=== PATIENT | female | born 1980 | race Caucasian/White ===

== ENCOUNTER 2018-09-02 13:09 | Outpatient (CLI) | payer BC ==
--- NOTE | 2018-09-02 16:27 | MMO ---
BILATERAL SCREENING MAMMOGRAM: Date: 09/02/18 COMPARISON: 01/24/11. HISTORY: Annual screening exam. This patient's mammogram was interpreted with the assistance of computer-aided detection. FINDINGS: The breasts are heterogeneously dense. Bilateral breast implants appear normal. Benign calcifications in both breasts. IMPRESSION: BIRADS 2: Benign Finding(s) POS: [facility]
== END 2018-09-02 13:10 | disposition home or self-care (01) ==
LOC: SCSMAMMO 13:09
PROVIDERS: ATTEND Family Medicine
DX: Z12.31 Encounter for screening mammogram for malignant neoplasm of breast (principal)
CPT/HCPCS: 77067

== ENCOUNTER 2018-09-25 07:06 | Outpatient (CLI) | payer OTHER ==
--- NOTE | 2018-09-25 09:15 | ULT ---
PELVIC ULTRASOUND: Date: 09/25/18 HISTORY: Pelvic pain. Patient states history of prior hysterectomy. FINDINGS: Multiple transabdominal and endovaginal sonographic images of the pelvis are obtained. The uterus is not visualized consistent with patient's reported history of prior hysterectomy. The right ovary is visualized and demonstrates a normal sonographic appearance measuring 2.7 cm x 1.6 cm x 1.7 cm. The left ovary is not visualized. However, there is a large amount of bowel gas within the left adnex al region, which results in shadowing and may obscure patient's left ovary. No obvious mass is seen i n the left adnexal region. No free fluid is seen in the pelvis. Doppler evaluation of the right ovary with spectral analysis and color flow evaluation does demonstra te arterial flow in the right ovary. IMPRESSION: 1. Normal appearing right ovary. 2. Nonvisualization of the left ovary. 3. Nonvisualization of the uterus related to patient's history of hysterectomy. POS: [facility]
--- NOTE | 2018-09-25 09:31 | ULT ---
ABDOMEN ULTRASOUND: HISTORY: Pelvic pain. Abdominal pain. FINDINGS: The liver demonstrates a homogeneous echotexture without focal mass or intrahepatic ductal dilatation . The spleen is normal, measuring 10.8 cm. No gallstones, gallbladder wall thickening, or perichole cystic fluid is seen. There is sludge in the gallbladder. The common duct measures 5 mm in diameter . There is sludge in the gallbladder, which is distended, measuring 11 cm. The pancreas, aorta, and IVC are not well visualized due to overlying bowel gas. The kidneys are normal. No free fluid is s een. IMPRESSION: Distended gallbladder with sludge. POS: [facility]
== END 2018-09-25 07:07 | disposition home or self-care (01) ==
LOC: SCSULT 07:06
PROVIDERS: ATTEND Family Medicine
DX: R10.2 Pelvic and perineal pain (principal); K82.8 Other specified diseases of gallbladder; Z87.42 Personal history of other diseases of the female genital tract; Z90.710 Acquired absence of both cervix and uterus
CPT/HCPCS: 76700; 76856

== ENCOUNTER 2018-10-09 14:27 | Inpatient (IN) | payer BC ==
[2018-10-09] MEDS ORDERED: Metoclopramide HCl 10 MG/2 ML VIAL IVP SCH (15:00)
[2018-10-09] MEDS ORDERED: Lactated Ringer's 1,000 ML IV SCH (15:00)
[2018-10-09 15:20] LABS: #Basophils 0.1 thou/uL (0.0-0.2); #Lymphocytes 1.6 thou/uL (1.20-3.40); #Monocytes 1.1 thou/uL (0.11-0.59); #Neutrophils 13.6 thou/uL (1.40-6.50); %Basophils 0.4 % (0.0-1.0); %Eosinophils 0.2 % (0.0-10.0); %Lymphocytes 9.7 % (21.0-51.0); %Monocytes 6.7 % (0.0-10.0); %Neutrophils 83.1 % (42.0-75.0); Hemoglobin 14.6 g/dL (12.0-16.0); Mean Corpuscular Hemoglobin 31.4 pg (27.0-31.0); Mean Corpuscular Volume 92.4 fL (78.0-98.0); Mean Platelet Volume 7.3 fL (7.4-10.4); Platelet Count 404 thou/uL (130-400); RBC Distribution Width 10.6 % (11.5-14.5); Red Blood Cell (RBC) Count 4.64 mill/uL (4.20-5.40); White Blood Cell (WBC) Count 16.4 thou/uL (4.8-10.8)
--- NOTE | 2018-10-09 15:24 | HP ---
HISTORY OF PRESENT ILLNESS: Clementina Meza is a 38-year-old female, followed by Dr. Lakesha Polanco, who has a negative family history of colon problems, although her mother did have severe diverticulitis requiring surgery. The patient on 09/22/2018 experienced acute onset of left lower quadrant pain. She never really experienced a fever. She saw Dr. Lakesha Polanco on September 24, and on September 25, she had an ultrasound of her pelvis revealing absence of any remarkable findings. She had an ultrasound of her gallbladder revealing gallbladder sludge. She had persistent pain, and on 09/28/2018 at [facility], she had a CAT scan of abdomen and pelvis revealing an abscess in left lower quadrant, pelvis 5.7 x 3.9 cm, and 7.7 cm craniocaudal dimension consistent with what suspect diverticular abscess near the junction of the descending sigmoid colon. She had scattered colonic diverticula in the area. There was an extensive fat stranding, remainder of the bowel was normal. Appendix was not visualized. The patient was then scheduled and underwent on 09/30/2018 CT-guided drainage of the abscess. She continued without alteration of her diet, although she was not very hungry, did not consume much solid food because of her anorexia, and she was treated with Augmentin twice a day. She irrigated her drain twice a day. She presented to Dr. Polanco's office today and was not feeling right. She just did not feel good. On 10/07/2018, the patient did see Dr. Marvin at [facility] and removed her drain. The patient states that she has pain at the end of her urination and she is exquisitely tender in the left lower quadrant, although without fever. She just does not feel well and has suffered anorexia. ALLERGIES: NONE. SOCIAL HISTORY: Tobacco, none. Alcohol, none. MEDICATIONS: 1. Levothyroxine. 2. Testosterone. 3. Progesterone. 4. Augmentin. PAST SURGICAL HISTORY: Breast augmentation; robotic hysterectomy without oophorectomy; breast biopsy that I performed in 2009, left. PAST MEDICAL HISTORY: Noncontributory except for recurrent ovarian cyst that she has monthly pain, although has not had this for 6 months. REVIEW OF SYSTEMS: Ten-point, noncontributory. FAMILY HISTORY: Noncontributory. PHYSICAL EXAMINATION: VITAL SIGNS: Weight 134 pounds. Height 65 inches. Blood pressure 124/82, pulse 117, temperature 99.5 degrees. HEAD, EYES, EARS, NOSE, AND THROAT: Unremarkable. Sclerae are nonicteric. LUNGS: Clear to auscultation. CARDIAC: Regular rate and rhythm without murmur or gallop. ABDOMEN: Soft, flat, nondistended, but exquisite tenderness in the left lower quadrant with guarding. EXTREMITIES: Unremarkable. No ankle edema. NEUROLOGIC: Intact. SKIN: Normal. LABORATORY DATA: Laboratories from [facility] on 09/05/2018; white count 5, hemoglobin 14, platelet count 194,000. Sodium 140, potassium 3.8, BUN 11, creatinine 0.78. Liver function tests normal. Cholesterol panel normal. Thyroid function tests normal. Cultures from CT-guided drainage reveal multiple organisms, E coli, Klebsiella, Streptococcus, Pseudomonas. ASSESSMENT AND PLAN: Diverticulitis, refractory to medical management. She underwent CT-guided drainage and had her drain removed on 10/07/2018. She continues on oral antibiotics, but feels worse. Her tenderness is significant. Radiological evidence suggested diverticular abscess at her young age. She has never had a colonoscopy. Family history is negative except for mother having severe diverticulitis, requiring colon resection. [facility] Surgeon, who recommended she have colon resection in 6 to 8 weeks. I have told her that we would try to avoid this depending on her clinical course. I did recommend that she have a colonoscopy in 6 to 8 weeks if we successfully resolve this episode due to her refractory diverticulitis to medical management, would recommend admission, intravenous antibiotics, bowel rest, repeating her CAT scan, and make further recommendations based on that. Job ID: [id number]
[2018-10-09 15:48] LABS: ALT (SGPT) 19 U/L (8-55); AST (SGOT) 15 U/L (5-34); Albumin 4.2 g/dL (3.5-5.0); Alkaline Phosphatase 92 U/L (40-150); Anion Gap 14 mmol/L (10-20); BUN (Urea Nitrogen) 8 mg/dL (7.0-18.7); Bilirubin, Total 0.7 mg/dL (0.2-1.2); Calc. Creatinine Clearance 0 mL/min (70-130); Carbon Dioxide 23 mmol/L (22-29); Chloride 103 mmol/L (98-107); Estimated GFR-MDRD 77; Globulin 3.9 g/dL (2.4-3.5); Glucose 93 mg/dL (70-105); Potassium 3.7 mmol/L (3.5-5.1); Protein, Total 8.1 g/dL (6.0-8.3); Sodium 136 mmol/L (136-145)
[2018-10-09] MEDS: Ketorolac Tromethamine 30 MG/ML VIAL IVP SCH ×2 (16:07→20:47)
[2018-10-09] MEDS: Acetaminophen 1,000 MG in Premix Bag 1 BAG IVPB SCH ×2 (16:12→20:47)
[2018-10-09] MEDS: Piperacillin/Tazobactam 4.5 GM in Sodium Chloride 0.9% 100 ML IVPB SCH ×2 (16:15→20:46)
[2018-10-09] MEDS: Lactated Ringer's 1,000 ML IV SCH ×2 (16:24→20:49)
[2018-10-09] MEDS ORDERED: Iopamidol 370 76% 50 ML VIAL FS ONE (16:32)
[2018-10-09] MEDS ORDERED: Iopamidol 370 76% 100 ML VIAL ONE (16:32)
[2018-10-09 16:55] VITALS: BMI 22.3
[2018-10-09 17:21] LABS: Bilirubin Negative (Negative); Blood, Urine Negative (Negative); Clarity CLEAR (Clear); Glucose, Urine (Dipstick) Negative (Negative); Leukocyte Negative (Negative); Nitrite Negative (Negative); Protein, Urine (Dipstick) Negative (Neg-Trace); Urobilinogen 0.2 mg/dL (0.2-1.0); pH, Urine 6.5 (5.0-9.0)
[2018-10-09 17:27] LABS: Specific Gravity, Urine 1.003 (1.002-1.036)
[2018-10-09 17:33] LABS: Bacteria/HPF None Seen HPF (None Seen); Hyaline Casts/LPF NONE SEEN LPF (0-3 Hyaline); RBC/HPF None Seen HPF (0-3); Squamous Epithelial 0-3 HPF (0-3); WBC/HPF 0-3 HPF (0-3)
--- NOTE | 2018-10-09 19:37 | CT ---
CT OF THE ABDOMEN AND PELVIS 10/09/18 COMPARISON: 09/28/18 HISTORY: Diverticulitis and history of abscess. TECHNIQUE: Axial CT imaging is obtained at 5 mm intervals from lung bases through pubic symphysis with IV and or al contrast. Coronal reformatted imaging obtained. FINDINGS: The imaged lung bases demonstrate no acute findings. No free intraperitoneal air. Incompletely imaged bilateral breast implants are present. The liver, gallbladder, spleen, pancreas, adrenal glands, and kidneys demonstrate no acute findings. There is wall thickening of the urinary bladder superiorly and to the left of midline. There is extensive wall thickening of the colon from the level of the junction of the descending colo n and sigmoid colon to the level of the rectum. There are a few scattered diverticula. Findings are c onsistent with colitis/extensive diverticulitis. There is a fluid collection in the left lower quadrant anterior to the inflamed sigmoid colon which c ontains gas along its anterior portion measuring 4.1 x 5.5 x 3.3 cm, consistent with residual right l ower quadrant abscess. No additional abscess is identified on this exam. There is no evidence for bowel obstruction. The vascular structures appear patent. Mildly enlarged left para-aortic node on image 34 measures 1 cm. Probable enlarged hypodense node meena ng external iliac chain on the right on image 6 3 measures 1.1 cm. There is significant stranding/inf lammatory change involving the lower pelvic mesenteric fat. Review of the osseous structures demonstrate no acute findings. On axial image 65 and coronal image 58, there is a vague hypodensity abutting the superior aspect of the urinary bladder posteriorly on the left measuring 1.8 cm which could represent an area of phlegmo nous change or could be adnexal/ovarian in nature. IMPRESSION: 1. Extensive colonic wall thickening from distal descending colon/sigmoid colon through rectum c onsistent with extensive colitis, likely on the basis of diverticulitis. Residual/recurrent left lowe r quadrant abscess. Extensive inflammatory change noted in the pelvis. 2. Wall thickening of the urinary bladder suggests secondary inflammatory change. Hypodensity al willie the superior margin of the urinary bladder as detailed above. POS: [facility]
[2018-10-09] MEDS ORDERED: Melatonin 3 MG TAB PO PRN (19:42)
[2018-10-09] MEDS ORDERED: Vancomycin HCl 1.5 GM in Sodium Chloride 0.9% 250 ML 300 ML IVPB ONE (19:45)
[2018-10-09] MEDS: Enoxaparin Sodium 40 MG/0.4 ML SYRINGE SC SCH (20:48)
[2018-10-09] MEDS: Temazepam 15 MG CAP PO PRN (20:53)
[2018-10-10] MEDS: Piperacillin/Tazobactam 4.5 GM in Sodium Chloride 0.9% 100 ML IVPB SCH ×4 (02:57→21:03)
[2018-10-10] MEDS: Ketorolac Tromethamine 30 MG/ML VIAL IVP SCH ×3 (02:57→15:02)
[2018-10-10] MEDS: Acetaminophen 1,000 MG in Premix Bag 1 BAG IVPB SCH ×3 (02:57→15:02)
[2018-10-10] MEDS: Lactated Ringer's 1,000 ML IV SCH ×2 (06:51→16:27)
[2018-10-10] MEDS: Liothyronine Sodium 5 MCG TAB PO SCH (07:48)
[2018-10-10 08:36] LABS: INR-International Normal Ratio 1.3; PTT 31.3 SEC (22.9-36.1); Prothrombin Time 16.6 SEC (12.0-14.7)
[2018-10-10] MEDS ORDERED: Midazolam HCl 2 mg/2 ml Vial ONE (10:04)
[2018-10-10] MEDS ORDERED: Fentanyl 100 MCG/2 ML VIAL ONE (10:05)
[2018-10-10] MEDS ORDERED: Sodium Bicarbonate 2.5 MEQ/5 ML VIAL ONE (10:05)
[2018-10-10] MEDS: Fentanyl 100 MCG/2 ML VIAL SLOW IVP PRN ×4 (12:52→20:19)
--- NOTE | 2018-10-10 14:31 | CT ---
CT GUIDED PERCUTANEOUS LEFT PELVIS ABSCESS DRAINAGE: DATE: 10/10/2018. HISTORY: Diverticular abscess. The patient has a history of diverticular abscess in the left anterolateral pe lvis, and a drainage catheter was placed at outside institution and was recently removed. Followup C T scan examination at this institution demonstrates a fluid and air collection within the left pelvis suggestive of an abscess. Drainage was requested. TECHNIQUE: After informed consent was obtained, the patient was placed on the CT scan table in the supine positi on. Conscious sedation was performed with the intravenous administration of Fentanyl and Versed. Th e patient is currently on antibiotics for the diverticulitis and diverticular abscess, and as a resul t, no additional antibiotics were given during the exam. Limited noncontrasted CT scan was obtained through the pelvis. An area overlying the left anterolate ral pelvis just anterior to the level of the iliac bone is marked, and the area was meticulously prep ped and draped in the usual sterile fashion. The skin and subcutaneous tissues were infiltrated with buffered 1% Lidocaine for local anesthesia. A 21-gauge micropuncture needle was advanced into the collection and position was confirmed with axia l CT images. A 0.018-inch guidewire was placed and the needle was exchanged for a 5 Guamanian introduce r sheath. A small skin incision was made at the puncture site. Position was again confirmed with [address]. The introducer sheath was then exchanged over a 0.035 inch Amplatz guidewire for an 8 Guamanian tissue d ilator followed by placement of an 8 Guamanian Cashiers-loop all-purpose drainage catheter. Final images de monstrate catheter within the collection. Approximately 27 mL of purulent fluid was aspirated from t he fluid and gas collection in the left anterior pelvis. The catheter was sutured in place utilizing 2-0 Ethilon suture material, and a dry, sterile dressing was placed. The catheter was placed to gravity drainage. The patient tolerated the procedure well and without immediate complication. FINDINGS: Left anterolateral pelvis abscess collection. There is gas seen superior to this region and in the r egion of the left rectus abdominus muscle related to site of prior drainage catheter which is no long er visualized. An 8 Guamanian all-purpose Cashiers-loop drainage catheter was placed within the abscess collection and puru lent material was aspirated. IMPRESSION: Technically successful CT-guided percutaneous abscess drainage left anterolateral pelvis. POS: [facility]
[2018-10-10] MEDS: Ondansetron ODT 4 MG TAB PO PRN (15:01)
[2018-10-10] MEDS ORDERED: traMADol HCl 50 MG TAB PO PRN (20:02)
[2018-10-10] MEDS ORDERED: Ibuprofen 600 MG TAB PO PRN (20:02)
[2018-10-10] MEDS ORDERED: Acetaminophen 500 MG TAB PO PRN (20:02)
[2018-10-10] MEDS ORDERED: HYDROcodone/Acetaminophen 5/325 mg Tablet PO PRN ×2 (20:04)
[2018-10-10] MEDS: Ketorolac Tromethamine 30 MG/ML VIAL IVP PRN (20:21)
[2018-10-10] MEDS: Enoxaparin Sodium 40 MG/0.4 ML SYRINGE SC SCH (20:21)
[2018-10-10] MEDS: Ondansetron PF 4 MG/2 ML Vial IVP PRN (20:46)
--- NOTE | 2018-10-10 21:55 | PRG ---
DATE OF SERVICE: 10/10/2018 SUBJECTIVE: Ms. Meza is doing well today. She has remained afebrile; 98.1 degrees, 80, 119/75. Laboratories none today. The patient underwent CT-guided drainage of a left lower quadrant abscess. This abscess was drained previously at [facility]. The drainage catheter was removed earlier this week without radiological imaging. The patient continued to feel poorly. Repeat CAT scan this hospitalization revealed abscess cavity to be the same as it was when she presented to [facility] when she had previously had this drained. Today, 30 mL of purulent material was drained. Gram-negative rods noted on the Gram stain. The patient had quite a bit of pain with the procedure and afterwards, was feeling somewhat better after intravenous narcotics. OBJECTIVE: LUNGS: Clear to auscultation. CARDIAC: Regular rate and rhythm without murmur or gallop. ABDOMEN: Soft, nontender. ASSESSMENT AND PLAN: She is tolerating liquids. We will continue IV fluids and check a CBC in the morning. Consideration of treating her with oral antibiotics and outpatient drainage, and followup CAT scan will be considered based on clinical course overnight. Job ID: [id number]
[2018-10-10] MEDS: traMADol HCl 50 MG TAB PO PRN (22:20)
[2018-10-10] MEDS: Temazepam 15 MG CAP PO PRN (22:20)
[2018-10-11] MEDS: Lactated Ringer's 1,000 ML IV SCH ×2 (02:07→13:03)
[2018-10-11] MEDS: Piperacillin/Tazobactam 4.5 GM in Sodium Chloride 0.9% 100 ML IVPB SCH ×3 (02:07→15:59)
[2018-10-11] MEDS: Ketorolac Tromethamine 30 MG/ML VIAL IVP PRN ×3 (02:08→17:46)
[2018-10-11] MEDS: Liothyronine Sodium 5 MCG TAB PO SCH (05:23)
[2018-10-11] MEDS: Fentanyl 100 MCG/2 ML VIAL SLOW IVP PRN ×2 (05:24→09:33)
[2018-10-11] MEDS: traMADol HCl 50 MG TAB PO PRN ×2 (05:34→15:58)
[2018-10-11] MEDS: Ondansetron PF 4 MG/2 ML Vial IVP PRN (05:43)
[2018-10-11 07:03] LABS: Hemoglobin 11.4 g/dL (12.0-16.0); Mean Corpuscular Hemoglobin 31.4 pg (27.0-31.0); Mean Corpuscular Volume 93.2 fL (78.0-98.0); Red Blood Cell (RBC) Count 3.63 mill/uL (4.20-5.40)
[2018-10-11 07:04] LABS: #Eosinphils 0.1 thou/uL (0.0-0.7); #Lymphocytes 1.8 thou/uL (1.20-3.40); #Monocytes 0.6 thou/uL (0.11-0.59); #Neutrophils 5.5 thou/uL (1.40-6.50); %Basophils 0.6 % (0.0-1.0); %Eosinophils 1.3 % (0.0-10.0); %Lymphocytes 22.3 % (21.0-51.0); %Monocytes 7.1 % (0.0-10.0); %Neutrophils 68.7 % (42.0-75.0); Mean Corpuscular HGB CONC 33.7 g/dL (32.0-36.0); Mean Platelet Volume 7.8 fL (7.4-10.4); Platelet Count 272 thou/uL (130-400); RBC Distribution Width 10.5 % (11.5-14.5)
[2018-10-11] MEDS ORDERED: Acetaminophen 1,000 MG in Premix Bag 1 BAG IVPB PRN (09:00)
[2018-10-11] MEDS: Ondansetron ODT 4 MG TAB PO PRN (16:00)
[2018-10-11 16:09] VITALS: BP 120/74; TEMP 97.6
[2018-10-11] MEDS ORDERED: Amoxicillin/Potassium Clav 500 MG TAB PO SCH (21:00)
--- NOTE | 2018-10-12 15:27 | DIS ---
DATE OF ADMISSION: 10/09/2018 DATE OF DISCHARGE: 10/11/2018 DISCHARGE DIAGNOSIS: Diverticular abscess. PROCEDURES DURING THIS HOSPITALIZATION: CT scan of the abdomen and pelvis. CT scan, drainage of diverticular abscess. Cultures. CT-guided drainage fluid and gram-negative prince, susceptibilities are pending. DISCHARGE INSTRUCTIONS: Low-fiber soft diet for [address]-guided drain catheter twice a day with 10 mL saline syringe. Record 24-hour output. DISCHARGE MEDICATIONS: Resume home medications; 1. Liothyronine 2 tabs a day. 2. Progesterone 100 mg a day. 3. Tramadol 50 mg q.i.d. p.r.n. 4. Ibuprofen 600 mg q.6 hours p.r.n. 5. Augmentin 500 mg b.i.d. 6. Tylenol p.r.n. pain. 7. Ultram p.r.n. pain. HISTORY/HOSPITAL COURSE: A 38-year-old female, acute onset of left lower quadrant pain, presented to [facility] over a week ago, undergoing CT-guided drainage as an outpatient. This drain was left in place. She states she never really felt better. She saw [facility] surgeon, who removed her drain earlier this week. She continued to have pain and felt terrible and saw Dr. Lakesha Polanco, who referred her to me and she was admitted to the hospital. CT scan of the abdomen and pelvis obtained and repeat drainage of her abscess performed. The CT scan from [facility] was compared to her CAT scan obtained this hospitalization. An abscess cavity had not decreased in size significantly and had an air-fluid level and it was 7 x [address]-guided drainage and she has significant output, 30 to 35 mL purulent drainage. At the time of drainage, she had 25 mL of purulent material aspirated. She had quite a bit of pain on the day of drainage, but this decreased by the next day and today, she is able to go home on the above antibiotic regimen and dietary regimen and follow up with me next week, recheck a CAT scan and determine management of her drain at that point. Job ID: [id number]
== END 2018-10-11 18:35 | disposition home or self-care (01) | DRG 358 ==
LOC: SURG B 14:27
PROVIDERS: ADMIT Specialist; ATTEND Specialist
PROC: 0W9J3ZX Drainage of Pelvic Cavity, Percutaneous Approach, Diagnostic (ICD-10-PCS; principal; 2018-10-10)
DX: K57.20 Diverticulitis of large intestine with perforation and abscess without bleeding (principal); R63.0 Anorexia; Z68.22 Body mass index [BMI] 22.0-22.9, adult
CPT/HCPCS: 36415; 49020; 74177; 77002; 80053; 81001; 85025; 85610; 85730; 87070; 87077; 87086; 87186; 87205; C1729; J0131; J1650; J1885; J2250; J2405; J2543; J3010; J3370; J7050; Q0162

== ENCOUNTER 2018-10-15 08:28 | Outpatient (CLI) | payer BC ==
--- NOTE | 2018-10-15 10:40 | CT ---
CT PELVIS WITH CONTRAST: INDICATIONS: Diverticular disease of the intestines. Prior drainage. Followup. FINDINGS: There is a coiled drainage catheter from a left ventral pelvic approach with the coil residing anteri jen, just below the inferior aspect of the left rectus abdominis. There is no surrounding fluid at the site of drainage. The adjacent bowel is markedly thickened, and there remains inflammatory mild scattered ascites of the pelvis. There is heterogeneity of each adnexa. There is mild wall promine nce of the unopacified urinary bladder. IMPRESSION: 1. Interval resolution of prior fluid collection. Drain remains in place with no significant surrou nding fluid. 2. There remains scattered mild inflammatory ascites of the pelvis. 3. There is marked inflammation of the adjacent sigmoid colon. Some of this is mass-like in appeara nce; therefore, followup is necessary to exclude the possibility of an underlying lesion. CODE T POS: [facility]
[2018-10-15] MEDS ORDERED: Iopamidol 370 76% 100 ML VIAL ONE (12:37)
== END 2018-10-15 08:29 | disposition home or self-care (01) ==
LOC: CT 08:28
PROVIDERS: ATTEND Specialist
DX: K57.80 Diverticulitis of intestine, part unspecified, with perforation and abscess without bleeding (principal); R18.8 Other ascites; K52.9 Noninfective gastroenteritis and colitis, unspecified
CPT/HCPCS: 72193

== ENCOUNTER 2018-11-03 00:33 | Inpatient (IN) | payer BC, OTHER ==
[2018-11-03 01:23] LABS: #Basophils 0.1 thou/uL (0.0-0.2); #Eosinphils 0.2 thou/uL (0.0-0.7); #Lymphocytes 1.9 thou/uL (1.20-3.40); #Monocytes 0.6 thou/uL (0.11-0.59); %Basophils 0.8 % (0.0-1.0); %Eosinophils 1.8 % (0.0-10.0); %Lymphocytes 19.6 % (21.0-51.0); %Monocytes 6.5 % (0.0-10.0); %Neutrophils 71.4 % (42.0-75.0); Hemoglobin 13.8 g/dL (12.0-16.0); Mean Corpuscular HGB CONC 33.8 g/dL (32.0-36.0); Mean Corpuscular Hemoglobin 31.9 pg (27.0-31.0); Mean Corpuscular Volume 94.4 fL (78.0-98.0); Mean Platelet Volume 8.5 fL (7.4-10.4); Platelet Count 193 thou/uL (130-400); Red Blood Cell (RBC) Count 4.33 mill/uL (4.20-5.40); White Blood Cell (WBC) Count 9.9 thou/uL (4.8-10.8)
[2018-11-03 01:46] LABS: ALT (SGPT) 15 U/L (8-55); AST (SGOT) 16 U/L (5-34); Albumin 4.1 g/dL (3.5-5.0); Alkaline Phosphatase 104 U/L (40-150); Anion Gap 15 mmol/L (10-20); BUN (Urea Nitrogen) 6 mg/dL (7.0-18.7); Bilirubin, Total 0.4 mg/dL (0.2-1.2); Calc. Creatinine Clearance 0 mL/min (70-130); Calcium 9.1 mg/dL (7.8-10.44); Carbon Dioxide 21 mmol/L (22-29); Chloride 107 mmol/L (98-107); Estimated GFR-MDRD 84; Globulin 3.1 g/dL (2.4-3.5); Glucose 105 mg/dL (70-105); Lipase 33 U/L (8-78); Potassium 3.4 mmol/L (3.5-5.1); Protein, Total 7.2 g/dL (6.0-8.3); Sodium 140 mmol/L (136-145)
[2018-11-03 02:23] LABS: Bilirubin Negative (Negative); Blood, Urine Moderate (Negative); Clarity CLOUDY (Clear); Glucose, Urine (Dipstick) Negative (Negative); Leukocyte Large (Negative); Nitrite Negative (Negative); Protein, Urine (Dipstick) Negative (Neg-Trace); Specific Gravity, Urine 1.004 (1.002-1.036); Urobilinogen 0.2 mg/dL (0.2-1.0); pH, Urine 6.5 (5.0-9.0)
[2018-11-03 02:25] LABS: Pathc Cast-AUWi Flag 0.87 (0-2.49)
[2018-11-03 02:36] LABS: RBC/HPF 0-3 HPF (0-3); WBC/HPF 21-50 HPF (0-3)
[2018-11-03 02:37] LABS: Bacteria/HPF None Seen HPF (None Seen); Hyaline Casts/LPF NONE SEEN LPF (0-3 Hyaline); Squamous Epithelial 0-3 HPF (0-3)
[2018-11-03] MEDS ORDERED: Meropenem 2 GM in Sodium Chloride 0.9% 100 ML IVPB ONE (03:15)
[2018-11-03] MEDS ORDERED: Lorazepam 2 MG/ML VIAL ONE ×2 (03:25→08:43)
[2018-11-03 10:10] VITALS: BMI 22.3
[2018-11-03] MEDS ORDERED: Morphine 4 MG/ML VIAL SLOW IVP PRN ×2 (10:13→11:09)
[2018-11-03] MEDS ORDERED: Sodium Chloride 0.45% 1,000 ML IV SCH (10:15)
[2018-11-03] MEDS ORDERED: Acetaminophen 325 MG TAB PO PRN (11:09)
--- NOTE | 2018-11-03 12:11 | HP ---
CHIEF COMPLAINT: Purulent drainage. HISTORY: Ms. Meza is a 38-year-old woman with a history of complicated diverticulitis. She has been admitted twice for this in the past month and a half just before [place]. She was admitted to [facility] for diverticulitis and drainage of an intra-abdominal abscess. The drain was removed in late September and she felt fine for a while, but then the abdominal pain came back and she felt a firmness in her left lower quadrant, so she came in to see Dr. Pozo, who had previously done breast surgery on her. He felt that she had recurrent or persistent diverticulitis, and obtained the CT, which showed a recurrent abscess in the same general area as her previous abscess. He admitted her for IV antibiotics and percutaneous drainage. Before removing the drain, he did do a repeat CT, and this did not show any persistent abscess. Her drainage had been minimal, so he removed the drain, and again, she felt fine for a while. Earlier this week on , she started to feel some minor discomfort in her left lower quadrant, but it was not very bad. Sunday and Sunday, got a little bit worse, but she was not having any fevers or chills. Last night, she woke up in a pool of pus, which she could not quite tell where it had come from. She thought it might have come from her rectum or vagina. She decided to come into the emergency room at that time. When she was prepping her perineum to give a urine sample, she found a metallic clip which had also come out. She states that the abdominal pain that she is having is very minimal compared to the pain she had with her previous episodes of diverticulitis. She has not had any fevers, but states that she did not have fevers with her other episodes either. She has undergone a robotic hysterectomy, but still has her ovaries. No other abdominal surgeries. PAST MEDICAL HISTORY: Hypothyroid and recent history of diverticulitis. PAST SURGICAL HISTORY: Robotic hysterectomy, breast augmentation, and breast biopsy. OUTPATIENT MEDICATIONS: Progesterone for ovarian cyst, Cytomel for thyroid. ALLERGIES: NO KNOWN DRUG ALLERGIES. SOCIAL HISTORY: The patient does not smoke or use illicit drugs. She drinks socially, but not frequently or to excess. REVIEW OF SYSTEMS: Ten-system review of systems is negative, except per HPI. Specifically, the patient does not have a history of long-standing constipation or previous issues with her bowels before September. FAMILY HISTORY: Noncontributory. She has no family history of GI malignancy, although her mother did have diverticulitis and required surgery for this. PHYSICAL EXAMINATION: VITAL SIGNS: The patient is afebrile with normal vital signs. GENERAL: Reveals a thin young woman, in no acute distress. She is not flushed or jaundiced. She is not icteric. HEENT: Unremarkable. NECK: Supple without lymphadenopathy or thyroid nodules. HEART: Regular in its rate and rhythm without murmurs, rubs, or gallops. LUNGS: Clear to auscultation bilaterally. ABDOMEN: Soft and nondistended. She is mildly tender to palpation in the left lower quadrant, and there is some firmness in that area. No rigidity, rebound, or guarding. No other masses or hernias and otherwise nontender. : Vaginal exam was performed by the ER physician, and he noted pus in the vaginal cuff and some tenderness with movement of the speculum. DIAGNOSTIC DATA: CT images were reviewed with Dr. Maldonado of Radiology. The metallic fragments noted in the pelvis appeared to be postsurgical from her hysterectomy and were present previously. The patient had a pelvic phlegmon noted back in October, which was felt to just be inflammatory changes related to the colon. There was no pelvic abscess at that time. She did have an abscess anterior to the sigmoid colon, which was percutaneously drained. On followup CT in mid-October that abscess had resolved. On today's CT, there is some gas in the area of that abscess, but no drainable fluid collection. The sigmoid colon is still inflamed. In the pelvis, there is some fluid in the vaginal cuff, but no significant fluid collection in the pelvis, although there are still inflammatory changes. There is a cystic area in the right pelvis a little higher up, which is felt to likely be an ovarian cyst. No free air. No gas in the pelvis is noted outside of the colon. ASSESSMENT AND PLAN: Recurrent or possibly persistent diverticulitis with pelvic abscess, which is spontaneously drained through the vaginal cuff. She does not appear to have residual fluid collection, which is percutaneously or surgically drainable. She is not septic in any way and has only minimal tenderness and pain in the left lower quadrant, which is likely related to the diverticulitis more than the abscess. The patient has had either transient or incomplete response to antibiotics in the past, and her options involve another trial of antibiotics to try to get the diverticulitis to completely resolve, following which she can undergo bowel preparation and colonoscopy, and then, decide whether she wants elective sigmoid colectomy or she could undergo sigmoid colectomy now, but this would require an ostomy. The patient would like to try a course of antibiotics. I will ask our Infectious Disease specialist to give his opinion on the type and length of treatment. She received meropenem and vancomycin in the emergency room, and I have written for meropenem to be continued. She is not nauseated or bloated, and I have decided to put her on clear liquids for now. The patient is concerned about the possibility of a connection between her colon and her vagina, clinically that does not appear to be the case, but if she were to develop feculent drainage, then of course a surgery will be necessary. Job ID: [id number]
[2018-11-03] MEDS: MEROPENEM 1 GM/50 ML 1 GM in Premix Bag 1 BAG IVPB SCH ×2 (12:33→20:31)
[2018-11-03] MEDS ORDERED: Iopamidol 370 76% 100 ML VIAL ONE (13:17)
[2018-11-03] MEDS ORDERED: Loratadine 10 MG TAB PO PRN (14:13)
[2018-11-03] MEDS ORDERED: Heparin 1,000 UNITS/ML VIAL ONE (15:00)
--- NOTE | 2018-11-03 16:25 | CT ---
PRELIMINARY REPORT/[facility]/EMERGENTY AFTER-HOURS PROCEDURE CT Abdomen and Pelvis With Contrast EXAM DATE/TIME: 11/03/2018 1:46 AM CLINICAL HISTORY: 38 years old, female; Pain; Abdominal pain; Localized; Lower; Prior surgery; Patient HX: Er 8; PT is 38 yo female, aaox3, breathing is even and unlabored, skin warm , dry and intact. PT presents to w ith report of abdominal pain and "pus draining from rectum. " PT reports HX of perforated colon with drain placed and then removed end of september. PT reports oct 09 had pain and was admitted to this hospital and had a second drain placed by md diaz. PT reports was discharged oct 17 and had no complications. PT reports started she was having "a little" abdominal pain and pressure to rectum. PT denies fever, chills, n/v, urinary complaints. Surgical HX of hysterectomy TECHNIQUE: Axial computed tomography images of the abdomen and pelvis with intravenous contrast. Coronal reformatted images were created and reviewed. COMPARISON: No relevant prior studies available. FINDINGS: Lower thorax: There is a partially visualized RIGHT breast implant. There is a 4 mm LEFT lower lobe p ulmonary nodule. ABDOMEN: Liver: There are no focal liver lesions identified. Gallbladder and bile ducts: The gallbladder is normal. There is no evidence of biliary ductal dilatio n. Pancreas: The pancreas appears normal. No ductal dilatation. Spleen: The spleen is normal. Adrenals: The adrenal glands are normal. Kidneys and ureters: The kidneys appear normal. No hydronephrosis. Stomach and bowel: The stomach is normal. The duodenum is unremarkable. There is wall thickening of t he sigmoid colon with surrounding inflammatory stranding, poorly evaluated without oral/rectal contra st. Air is seen within the pelvis which appears loculated and may be intra-or extraluminal. Appendix: No evidence of appendicitis. PELVIS: Bladder: The bladder is normal. Reproductive: The uterus is not visualized, and may be atrophic or surgically absent. ABDOMEN and PELVIS: Intraperitoneal space: There is trace fluid in the vaginal cuff. Bones/joints: No acute fracture. No dislocation. Soft tissues: Unremarkable. Vasculature: Normal. No abdominal aortic aneurysm. Lymph nodes: Normal. No enlarged lymph nodes. IMPRESSION: 1. There is wall thickening of the sigmoid colon with surrounding inflammatory stranding, poorly eval uated without oral/rectal contrast. Air is seen within the pelvis which appears loculated and may be intra-or extraluminal. Pelvic phlegmonous change cannot be excluded. 2. There is trace fluid in the vaginal cuff. 3. There is a 4 mm LEFT lower lobe pulmonary nodule. For patients at low risk (minimal or absent hist ory of smoking and of other known risk factors), no routine follow-up is indicated. For patients at h igh risk (history of smoking or of other known risk factors), consider optional CT at 12 months. (Gianna et al., Fleischner Society, 2017) Thank you for allowing us to participate in the care of your patient. Dictated and Authenticated by: Reji Segovia MD 11/03/2018 2:34 AM Central Time ([place] & [place]) FINAL REPORT EMERGENCY AFTER HOURS STUDY CT ABDOMEN WITH CONTRAST CT PELVIS WITH CONTRAST: DATE: 11/03/2018. TIME: 1:48 a.m. HISTORY: A 38-year-old female with a history of diverticular abscess who presents with purulent vaginal discha rge. COMPARISON: Pelvic CT of 10/15/2018. TECHNIQUE: IV injection of iodinated contrast media: Isovue. Oral contrast media: Not administered. FINDINGS: There is extensive fat stranding throughout the entire pelvic cavity consistent with edema. This zaria ma, relative lack of visceral fat, and lack of enteric contrast material, make it difficult to evalua te for small amounts of extraluminal gas. The external drainage catheter in the ventral aspect of th e left lower quadrant intraperitoneal pelvic inlet, just deep to the left lower rectus abdominus musc le, has been removed. Within that collection, there has been reaccumulation of gas, with the gas-rene led pocket currently measuring approximately 5 x 2.5 x 1.5 cm. There is little or no fluid within th is collection. The presence of the extensive intrapelvic edema makes it difficult to evaluate the bowel in the pelvi s, including the sigmoid colon. There is a new finding of a small amount of intraluminal fluid, and a tiny amount of gas, within the vaginal cuff. Again noted is the diffuse mural thickening of the urinary bladder, which could either represent primary cystitis, or could be reactive secondary to the surrounding intrapelvic inflammati on and edema. The latter is favored, unless there are UTI symptoms. There is a 2 x 1.5 x 1.5 cm low-density lesion at the right lateral aspect of the intrapelvic cavity, slightly medial, located medial and superior to the right acetabular roof. This is probably a right ovarian cyst, but there is a small possibility that this could be an early new intrapelvic abscess. On the previous CT, there was an approximately 3 x 3 x 3 cm cystic structure in the right pelvic cavi ty which may have been right ovary cyst, which may or may not be the same cystic structure found on t he current CT after interval shrinkage. There was another slightly smaller cystic structure slightly to the left of midline on that previous CT, which is no longer visualized. No major disagreement with preliminary report by [employer] [employer]. IMPRESSION: 1. New finding of a small amount of fluid and gas within the vaginal cuff. Given the history of pur ulent vaginal discharge, this is probably a small abscess within the vaginal cuff. 2. Upon removal of the external drainage catheter from the ventral aspect of the left lower quadrant peritoneal cavity, there has been accumulation of gas within this collection, but little or no fluid . The source of this gas is not apparent, but this does raise the possibility of an occult communica tion between this collection and the adjacent proximal sigmoid colon. 3. Extensive edema throughout the pelvic cavity. YULI Cast POS: MARVIN
--- NOTE | 2018-11-03 16:44 | CON ---
DATE OF CONSULTATION: 11/03/2018 REASON FOR CONSULTATION: Intraabdominal inflammatory process. HISTORY OF PRESENT ILLNESS: A 38-year-old, otherwise healthy, who developed fairly acute onset of abdominal pain in the left lower quadrant, initially felt to be due to ovarian complication, but imaging studies identified an abscess in the left lower quadrant. The patient was then submitted to percutaneous drainage procedure at [facility], which was accomplished there. She was given oral Augmentin throughout the course of treatment there and cultures revealed Pseudomonas, 2 other gram-negative rods, Bacteroides fragilis, and Streptococcus viridans. The patient had a drain removed and then had recrudescence, saw Dr. Pozo and had another percutaneous drainage procedure. At this time, we had Klebsiella and enterobacter with a fairly susceptible profile except for Augmentin. The patient was kept on Augmentin and now, she presents with recrudescence of symptoms with spontaneous drainage of the diverticular abscess through the vaginal cuff. The patient denies any headaches. No visual symptoms, sore throat, odynophagia, or dysphagia. No cough or sputum production. No chest pain. No genitourinary symptoms other than the drainage noticed above. No joint symptoms. No neurological symptoms. PAST MEDICAL HISTORY: Hypothyroidism, otherwise none. PAST SURGICAL HISTORY: Prior hysterectomy, breast augmentation, and breast biopsy. ALLERGIES: NONE. 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 Never smoker. Three children. Lives in [facility]. FAMILY HISTORY: Noncontributory. CURRENT MEDICATIONS: 1. P.R.N. medications. 2. Meropenem. 3. Flonase. 4. Loratadine. 5. Ambien. PHYSICAL EXAMINATION: VITAL SIGNS: T-max 98.2, blood pressure 115/76, pulse 75, respirations 15, and O2 saturation 98%. SKIN: Peripheral IV access. : She is voiding spontaneously. NECK: No lymphadenopathy. HEENT: Normal. LUNGS: Clear. HEART: S1 and S2. Regular rate. ABDOMEN: Soft, not distended or tender. No ascites. No bladder distention. MUSCULOSKELETAL: No joint inflammatory activity. NEURO: Nonfocal. LABORATORY DATA: White cell count 9.9, hemoglobin 13.8, and platelets 193 with a 71% neutrophils. Sodium 140 and creatinine 0.76. Normal liver profile. Microbiology, we have the microbiology from [facility] with Pseudomonas, Bacteroides fragilis and two other gram-negatives and Streptococcus viridans and here we have Klebsiella pneumoniae and Enterobacter cloacae. The patient had a repeat abdomen and pelvis CT, yet to be read. I looked at the images and there seems to be a left-sided area of free air in the pelvis, but I did not see any fluid collection. ASSESSMENT AND PLAN: Ruptured diverticulitis with now communication with the vaginal area and spontaneous drainage of the abscess. The abscess is polymicrobial with a variety of gram-negative rods, anaerobes, and gram-positive cocci. I would advise continuation of IV meropenem. Peripherally inserted central catheter line placement in terms of definitive management to be either conservative with continuation of antimicrobials. We will follow up imaging studies to see if there is resolution of the abscess. Surgical solutions including resection of the involved segment of colon might be necessary depending on clinical progress. Job ID: [id number]
[2018-11-03] MEDS: Fluticasone Propionate Nasal Spray 16 gm Bottle NASAL SCH (17:48)
[2018-11-03] MEDS: Famotidine/PF 20 mg/2ml Vial SLOW IVP SCH (20:32)
[2018-11-03] MEDS: Zolpidem Tartrate 5 MG TAB PO PRN (22:35)
[2018-11-04] MEDS: MEROPENEM 1 GM/50 ML 1 GM in Premix Bag 1 BAG IVPB SCH ×3 (03:31→19:49)
[2018-11-04] MEDS: Famotidine/PF 20 mg/2ml Vial SLOW IVP SCH ×2 (08:48→20:28)
[2018-11-04] MEDS: Fluticasone Propionate Nasal Spray 16 gm Bottle NASAL SCH (08:52)
[2018-11-04] MEDS: Acetaminophen 325 MG TAB PO PRN ×2 (16:03→20:28)
--- NOTE | 2018-11-04 17:39 | SPC ---
ULTRASOUND AND FLUOROSCOPIC GUIDED LEFT UPPER EXTREMITY PERIPHERALLY INSERTED CENTRAL CATHETER LINE P LACEMENT: INDICATIONS: Need for long-term IV antibiotics. TECHNIQUE: Informed consent was obtained. Pre-procedure ultrasound demonstrated a patent left basilic vein. Th e left upper extremity was prepped and draped in the usual sterile fashion. Buffered 1% Lidocaine wa s administered to the overlying subcutaneous tissues. Under ultrasound guidance, a micropuncture acc ess kit was utilized to gain access to the left basilic vein. A guidewire was advanced to the level of the IVC. A 5 [place] catheter sheath was then placed. A single-lumen PICC line, trimmed to 44 cm, was guided over the wire and through the sheath. The sheath and wire were removed. Total fluorosco pic time was 0.9 minutes. Total exposure was 684 mGy per cm2. The catheter flushed and aspirated ap propriately. The patient tolerated the procedure without difficulty. IMPRESSION: Successful ultrasound and fluoroscopic guided left upper extremity peripherally inserted central cath eter line placement. POS: MARVIN
--- NOTE | 2018-11-04 21:07 | PDOC.GSPN ---
Surgery Progress Note: Subj - Subjective Narrative: Patient is feeling okay with minimal pain and no fever. She is still having some purulent drainage through her vagina. Her abdomen is soft and nondistended. She has some minimal tenderness and induration of the left lower quadrant. Assessment/plan: Recurrent or persistent diverticulitis with pelvic abscess spontaneously drained through vaginal cuff. Trial of antibiotics. If patient develops worsening symptoms or feculent drainage then surgery will be necessary. Surgery Progress Note: Obj - Vital signs Vital signs: Vital Signs - Most Recent Temp Pulse Resp BP Pulse Ox 97.6 F 76 18 117/80 96 11/04/18 19:53 11/04/18 19:53 11/04/18 19:53 11/04/18 19:53 11/04/18 19:53 Surgery Progress Note: Results - Labs Result Diagrams: 11/03/18 01:01 11/03/18 01:01
[2018-11-04] MEDS: Zolpidem Tartrate 5 MG TAB PO PRN (21:28)
[2018-11-05] MEDS: MEROPENEM 1 GM/50 ML 1 GM in Premix Bag 1 BAG IVPB SCH ×3 (03:35→20:44)
[2018-11-05] MEDS: Acetaminophen 325 MG TAB PO PRN ×2 (04:13→11:57)
[2018-11-05] MEDS: Famotidine/PF 20 mg/2ml Vial SLOW IVP SCH (10:11)
[2018-11-05] MEDS: Fluticasone Propionate Nasal Spray 16 gm Bottle NASAL SCH (10:11)
--- NOTE | 2018-11-05 15:25 | PDOC.GSPN ---
Surgery Progress Note: Subj - Subjective Narrative: Patient was feeling great until earlier this afternoon when she had recurrent crampy abdominal pain. She passed a little yellow pus through her vagina but no gas. She is still having a little crampy pain but is not severe. Tenderness in the left lower quadrant is still minimal. She has been afebrile. She is awaiting approval from her insurance company for outpatient IV antibiotics. Assessment/plan: Recurrent/persistent diverticulitis. I reviewed her CT images again with another radiologist looking specifically for fistulous connection. This can't definitely be demonstrated but he can't rule it out either. There may be a fistulous tract between her anterior abscess and the small collection of fluid and gas in the vaginal cuff, or this could just be inflammatory changes. I discussed this with the patient and reviewed her options. We could do a CT with rectal contrast, but this would only be diagnostic if we saw contrast in the vaginal cuff. If it is a small connection it might not show up, so a negative result would not be helpful. I think she continues to have purulent drainage from her vagina we need to just assume that she has a fistulous connection. The connection is coming from all the way up in the upper sigmoid, it is possible that this could close spontaneously if the inflammation in the colon resolves, because this is a much longer fistulous tract than we commonly see. As long as she remains comfortable and minimally symptomatic, I think it is safe to wait and watch, but if she develops feculent drainage or worsening abdominal pain, we should proceed with surgery. Surgery Progress Note: Obj - Vital signs Vital signs: Vital Signs - Most Recent Temp Pulse Resp BP Pulse Ox 97.8 F 71 16 126/86 97 11/05/18 11:53 11/05/18 11:53 11/05/18 11:53 11/05/18 11:53 11/05/18 11:53 Surgery Progress Note: Results - Labs Result Diagrams: 11/03/18 01:01 11/03/18 01:01
[2018-11-05] MEDS ORDERED: Ertapenem 1 GM in Sodium Chloride 0.9% 100 ML IVPB SCH (16:30)
[2018-11-05] MEDS: Famotidine 20 MG TAB PO SCH (20:44)
[2018-11-05] MEDS: Zolpidem Tartrate 5 MG TAB PO PRN (22:25)
[2018-11-06] MEDS: MEROPENEM 1 GM/50 ML 1 GM in Premix Bag 1 BAG IVPB SCH ×3 (04:50→20:45)
[2018-11-06] MEDS: Famotidine 20 MG TAB PO SCH ×2 (09:25→20:45)
[2018-11-06] MEDS: Acetaminophen 325 MG TAB PO PRN (09:27)
[2018-11-06] MEDS: Fluticasone Propionate Nasal Spray 16 gm Bottle NASAL SCH (09:27)
--- NOTE | 2018-11-06 12:40 | CON ---
DATE OF CONSULTATION: 11/06/2018 HISTORY OF PRESENT ILLNESS: This is a 38-year-old white female. Dr. Smith asked me to see. She is planning on doing a colectomy tomorrow and she would like pre-colectomy to have bilateral ureteral stents placed to help her in identifying the ureters. This patient has a diverticular abscess and it looks like it has been drained percutaneously, and I think her tube has been out and she recently has started been passing some purulent drainage from her vagina, so the thought is that she may well have colovaginal fistula. Her surgery scheduled for tomorrow just before lunch time. Urinalysis shows some white cells when she came in on , but no bacteria. I have reviewed her CAT scan and she has no kidney stones. She has no hydronephrosis, nothing to suggest any ureteral stones. This CAT scan was done on the when she came in. She has good uptake of contrast to both kidneys. There is no catheter in her bladder and she has no air in her bladder. Her creatinine was normal. Her blood cultures have been negative. Urine culture was negative. White count was elevated. She is on meropenem currently. I talked with the patient about placing the stents. I indicated that would be placed after she is asleep by doing a cystoscopic exam and then feeding some open-ended catheters up the left and right ureter. We would likely to leave these in just during the procedure would be unlikely they being need to be left in postoperatively. The internal and external stents were attached to a Mtz catheter. Her preoperative antibiotics, which she would be on for the bowel surgery should cover for the cystoscopic exam. Job ID: [id number]
[2018-11-06] MEDS: HYDROcodone/Acetaminophen 7.5/325 mg Tablet PO PRN ×2 (13:03→18:37)
[2018-11-06] MEDS: Lorazepam 2 MG/ML VIAL SLOW IVP PRN (15:11)
--- NOTE | 2018-11-06 17:19 | PDOC.GSPN ---
Surgery Progress Note: Subj - Subjective Narrative: Patient's vaginal discharge has developed a brown speckled hue consistent with feculent drainage. She is still having some crampy abdominal pain but not severe. Abdomen is still just mildly tender in the left lower quadrant. Firm mass is still palpable in this area consistent with her inflamed colon. Assessment/plan: Colovaginal fistula. I recommended colectomy. This will require temporary colostomy, as I don't think that a primary anastomosis is safe in the setting of her severe inflammation in the pelvis. I have asked urology to see her for ureteral stents to help prevent ureteral injury intraoperatively. Dr. Jennings would like her to stay on meropenem postoperatively due to her culture results. She is on the OR schedule for tomorrow morning and is nothing by mouth after midnight. Surgery Progress Note: Obj - Vital signs Vital signs: Vital Signs - Most Recent Temp Pulse Resp BP Pulse Ox 97.8 F 80 18 115/79 100 11/06/18 16:00 11/06/18 16:00 11/06/18 16:00 11/06/18 16:00 11/06/18 16:00 Surgery Progress Note: Results - Labs Result Diagrams: 11/03/18 01:01 11/03/18 01:01
[2018-11-06] MEDS: Zolpidem Tartrate 5 MG TAB PO PRN (20:45)
[2018-11-06] MEDS: Ondansetron PF 4 MG/2 ML Vial IVP PRN (20:46)
[2018-11-07] MEDS ORDERED: Clopidogrel Bisulfate 75 MG TAB ONE (03:15)
[2018-11-07] MEDS: MEROPENEM 1 GM/50 ML 1 GM in Premix Bag 1 BAG IVPB SCH ×3 (03:39→20:15)
[2018-11-07] MEDS: Lorazepam 2 MG/ML VIAL SLOW IVP PRN (03:53)
[2018-11-07 07:05] LABS: #Basophils 0.1 thou/uL (0.0-0.2); #Eosinphils 0.2 thou/uL (0.0-0.7); #Lymphocytes 1.8 thou/uL (1.20-3.40); #Monocytes 0.5 thou/uL (0.11-0.59); #Neutrophils 2.3 thou/uL (1.40-6.50); %Basophils 1.1 % (0.0-1.0); %Eosinophils 4.4 % (0.0-10.0); %Lymphocytes 36.8 % (21.0-51.0); %Monocytes 10.5 % (0.0-10.0); %Neutrophils 47.2 % (42.0-75.0); Hemoglobin 13.3 g/dL (12.0-16.0); Mean Corpuscular HGB CONC 33.7 g/dL (32.0-36.0); Mean Corpuscular Hemoglobin 31.3 pg (27.0-31.0); Mean Corpuscular Volume 92.9 fL (78.0-98.0); Mean Platelet Volume 7.6 fL (7.4-10.4); Platelet Count 222 thou/uL (130-400); RBC Distribution Width 10.7 % (11.5-14.5); Red Blood Cell (RBC) Count 4.26 mill/uL (4.20-5.40); White Blood Cell (WBC) Count 4.9 thou/uL (4.8-10.8)
[2018-11-07 07:29] LABS: Anion Gap 12 mmol/L (10-20); BUN (Urea Nitrogen) 4 mg/dL (7.0-18.7); Calc. Creatinine Clearance 99 mL/min (70-130); Calcium 9.7 mg/dL (7.8-10.44); Carbon Dioxide 27 mmol/L (22-29); Chloride 105 mmol/L (98-107); Estimated GFR-MDRD Greater than 90; Glucose 74 mg/dL (70-105); Sodium 140 mmol/L (136-145)
[2018-11-07] MEDS: Famotidine 20 MG TAB PO SCH ×2 (08:41→21:05)
[2018-11-07] MEDS: Fluticasone Propionate Nasal Spray 16 gm Bottle NASAL SCH (08:41)
[2018-11-07] MEDS ORDERED: Midazolam HCl 2 mg/2 ml Vial ONE (10:50)
[2018-11-07] MEDS ORDERED: Fentanyl 100 MCG/2 ML VIAL ONE ×4 (10:50→16:50)
[2018-11-07] MEDS ORDERED: Dexamethasone 4 mg/ml Vial ONE (10:51)
[2018-11-07] MEDS ORDERED: Scopolamine 1.5 mg/72 hour Patch ONE (11:15)
[2018-11-07] MEDS ORDERED: Bupivacaine HCl 0.5%/Epinephrine 1:200,000/PF 30 ml Vial ONE ×2 (12:01→15:48)
[2018-11-07] MEDS ORDERED: Meperidine HCl/PF 25 MG/ML VIAL SLOW IVP PRN (15:12)
[2018-11-07] MEDS ORDERED: Promethazine HCl 25 MG/ML VIAL SLOW IVP PRN (15:12)
[2018-11-07] MEDS ORDERED: Promethazine HCl 25 MG/ML VIAL IM PRN (15:12)
[2018-11-07] MEDS ORDERED: PACU-Morphine 4MG/ML VIAL SLOW IVP PRN (15:12)
[2018-11-07] MEDS ORDERED: Ondansetron HCl/PF 4 MG/2 ML Vial IVP PRN (15:12)
[2018-11-07] MEDS ORDERED: Dexamethasone 20 MG/5 ML VIAL ONE (16:58)
[2018-11-07] MEDS ORDERED: Rocuronium Bromide 10 MG/ML (10ML VIAL) ONE (16:58)
[2018-11-07] MEDS ORDERED: Glycopyrrolate 0.2 MG/ML 5 ML SYRINGE ONE (16:58)
[2018-11-07] MEDS ORDERED: PROPOFOL 200 MG/20 ML VIAL ONE (16:58)
[2018-11-07] MEDS ORDERED: Lidocaine 1% PF 5 ML VIAL ONE (16:58)
[2018-11-07] MEDS ORDERED: PHENYLEPHRINE-NS 100 MCG/ML 10 ML SYRINGE ONE (16:58)
[2018-11-07] MEDS ORDERED: Ketorolac Tromethamine 30 MG/ML VIAL ONE (16:58)
[2018-11-07] MEDS ORDERED: Ondansetron PF 4 MG/2 ML Vial ONE (16:58)
[2018-11-07] MEDS ORDERED: HYDROcodone/Acetaminophen 5/325 mg Tablet PO PRN (17:36)
[2018-11-07] MEDS ORDERED: Morphine 2 mg/2ml in 0.9% NaCl PF SYRINGE IV PRN (17:38)
[2018-11-07] MEDS: D5 1/2 NS w/20 mEq KCL 1,000 ML IV SCH (18:10)
[2018-11-07] MEDS: Ketorolac Tromethamine 30 MG/ML VIAL IVP PRN (20:14)
[2018-11-07] MEDS: Famotidine/PF 20 mg/2ml Vial SLOW IVP SCH (20:15)
[2018-11-07] MEDS: Enoxaparin Sodium 40 MG/0.4 ML SYRINGE SC SCH (20:15)
[2018-11-07] MEDS: Acetaminophen 1,000 MG in Premix Bag 1 BAG IVPB PRN (20:15)
[2018-11-07] MEDS: Morphine 4 MG/ML VIAL SLOW IVP PRN (22:32)
[2018-11-08] MEDS: Morphine 4 MG/ML VIAL SLOW IVP PRN ×3 (00:06→09:49)
[2018-11-08] MEDS: Acetaminophen 1,000 MG in Premix Bag 1 BAG IVPB PRN ×2 (02:11→08:12)
[2018-11-08] MEDS: Ketorolac Tromethamine 30 MG/ML VIAL IVP PRN ×4 (02:11→20:27)
[2018-11-08] MEDS: D5 1/2 NS w/20 mEq KCL 1,000 ML IV SCH ×4 (02:20→20:37)
[2018-11-08] MEDS: Ondansetron PF 4 MG/2 ML Vial IVP PRN ×2 (04:36→09:46)
[2018-11-08] MEDS: MEROPENEM 1 GM/50 ML 1 GM in Premix Bag 1 BAG IVPB SCH ×3 (04:36→20:28)
[2018-11-08] MEDS: Famotidine/PF 20 mg/2ml Vial SLOW IVP SCH ×2 (08:12→20:28)
[2018-11-08] MEDS: Famotidine 20 MG TAB PO SCH ×2 (08:15→20:41)
[2018-11-08] MEDS: Fluticasone Propionate Nasal Spray 16 gm Bottle NASAL SCH (08:16)
--- NOTE | 2018-11-08 09:57 | OP ---
DATE OF PROCEDURE: 11/07/2018 PREOPERATIVE DIAGNOSES: 1. Pelvic mass/diverticular abscess with probable colovaginal fistula. 2. Need for preoperative placement of ureteral stents aiding the identification of the ureter in a patient undergoing a sigmoid colectomy. POSTOPERATIVE DIAGNOSES: 1. Pelvic mass/diverticular abscess with probable colovaginal fistula. 2. Need for preoperative placement of ureteral stents aiding the identification of the ureter in a patient undergoing a sigmoid colectomy. PROCEDURES PERFORMED: Cysto and placement of bilateral open-ended ureteral stents. ANESTHETIC: General. EBL: None. FINDINGS: 1. There is no evidence of urethral stenosis or urethral lesion. The bladder was free of tumor, foreign body, stone, or area of inflammation. 2. Ureteral orifices in normal position. We passed a 6-[place] catheter on both sides to about 25 cm length. This was secured to her 16-[place] Mtz catheter with silk ties and 60 mL syringes were left attached to the external drainage port of the stent. DESCRIPTION OF PROCEDURE: Obtained written and verbal consent from the patient, she was taken to the operative suite. She was placed in supine position on the treatment table. PlexiPulses were placed on lower extremities and turned on. She was given a general anesthetic and oral intubation. She was then gently placed in dorsal lithotomy position, sterilely prepped and draped. Cystoscopy was performed with a 22-[place] sheath, this was well lubricated, passed under direct vision through the female urethra into the urinary bladder with the aid of a video camera and monitor. The bladder was filled and emptied number times, this was examined with both the 30 and the 70 degree lenses. At this point, using a 30 degree lens, we went ahead and passed on the right side and then on the left side, a 5-[place] catheters up the ureters to about 25 cm. The scope was removed. Mtz catheter was placed and the balloon was inflated. This was brought down to the bladder neck and then the stents were tied to it with a 0 silk suture. They were hooked up to a 60 mL Luer lock syringes . The patient was taken out of the dorsal lithotomy position. The stents and the syringes were wrapped in a blue towel. The case was then turned over to Dr. Smith. Job ID: [id number]
--- NOTE | 2018-11-08 11:28 | PDOC.OP ---
Operative Note - Operative Note Operative Note: PROCEDURE: Laparoscopic hand-assisted sigmoid colectomy and colostomy, with resection of antimesenteric distal ileum mass DATE OF PROCEDURE: 11/07/2018 SURGEON: Nelia Smith M.D. 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 She presented with recurrent left lower quadrant abdominal pain and purulent drainage from her vagina which then developed a feculent quality. CT showed severely inflamed sigmoid colon with likely colovaginal fistula from previous abscess site. Recommendation was made to undergo sigmoid colectomy and colostomy with plans to return at a later date for re-anastomosis. Given the severe inflammatory changes in the pelvis preoperative ureteral stenting was also recommended. PROCEDURE IN DETAIL: After informed consent was obtained and appropriate preoperative antibiotics were continued the patient was taken to the operating room she was placed in supine position and general endotracheal anesthesia was administered. Cystoscopy and ureteral stenting were performed by Dr. Hale as dictated separately. The patient was then placed in supine position and prepped and draped. Local anesthesia was infused the skin and subcutaneous tissues at the umbilicus. A transverse incision was made and the fascia elevated. A Veress needle was placed into the abdominal cavity without difficulty and carbon dioxide gas insufflated to an intra-abdominal pressure of 15 was patient tolerated well. The Veress needle was withdrawn and a Miguel Barrera port advanced under direct vision into the abdominal cavity which was carefully examined. The patient was noted to have extensive omental adhesions across the lower midline. A 12 mm trochars placed in the right lower quadrant under direct laparoscopic vision and the omental adhesions were taken down using a combination of blunt dissection and LigaSure. The patient was found to have dense adhesions between the sigmoid colon omentum and lateral anterior abdominal wall in the left lower quadrant but the colon above and below this area were soft and a plane was able to be developed between the colon and the abdominal wall. The previously drained abscess cavity was encountered and pus was sent for Gram stain and culture. The colovaginal fistula was identified tracking along the lateral abdominal wall encased by omentum down to the area of the vaginal cuff. Was felt that the colon was technically resectable so the umbilical trocar was removed and a 6 cm periumbilical incision was made for GelPort placement. Dissection was carried down to the fascia which was opened in the midline and the peritoneum was opened along the length of the fascial incision. The GelPort was placed and carbon dioxide gas reinsufflated. A 5 mm trocar was placed in the upper midline for the camera and the sigmoid colon was carefully mobilized using a combination of blunt digital dissection and LigaSure. The course of the ureters was easily able to be felt well medial to the area of the dense adhesions and the colon was able to be successfully mobilized. The dense omental adhesions tracking down toward the vaginal cuff were also dissected free. There was no visible defect to repair in this area. The omentum was densely adherent to the inflamed sigmoid colon and the noninflamed omentum was divided using LigaSure leaving the inflamed omentum adherent. The descending colon was easily able to be brought up to the anterior abdominal wall at the planned colostomy site in the left lower quadrant. A 5 mm trocar was placed at that site to aid in dissection and mobilization. The mesorectum was divided using LigaSure creating a window across the upper rectum and a endoscopic stapler was advanced through the right lower quadrant trocar and placed across the upper rectum. The upper rectum was divided and the mesorectum divided using LigaSure. Again the course of both ureters was easily able to be palpated and was well distant from the site of dissection. The mesentery of the sigmoid colon was also divided up past the level of the inflamed colon to the distal descending colon which was healthy in appearance. A second load of the endoscopic stapler was placed across the distal descending colon and the colon was divided. The inflamed sigmoid colon was removed through the wound protector and marked with a distal suture. The bowel was examined and in the distal ileum the patient had a nodular antimesenteric mass in the distal ileum which had the gross appearance of a hemangioma or cystic mass. There was no lymphadenopathy associated with this and had a grossly benign appearance so the decision was made to resect this by wedging it out. The small bowel was externalized through the wound protector and a transverse elliptical incision made resecting the mass. The defect was closed transversely using a 3-0 Vicryl Connel suture, and the suture line was imbricated with 3-0 silk Lembert sutures. The lumen of the bowel was palpated and widely patent. The abdomen was then copiously irrigated with 3 L of saline until all return was clear. The right lower quadrant trocar was removed and the fascial defects closed with a 3-0 Vicryl suture on a GraNee needle under direct laparoscopic vision with excellent technical result. The bowel was returned to its normal anatomic location taking care that there was no twisting of the mesentery and the remaining omentum was drawn down over the bowel. The left lower quadrant trocar was removed and a circular skin incision made and dissection carried down to the anterior rectus sheath which was incised in a cruciate manner. The underlying rectus muscles were split and the posterior sheath likewise incised. The tract was dilated and the descending colon drawn out through the tract and secured to the posterior sheath with silk sutures. Seprafilm was placed beneath the periumbilical incision and the fascia was closed under direct vision with a running PDS suture with excellent technical result. The subcutaneous tissues were copiously irrigated and gloves and instruments were changed. The subcutaneous tissues were reapproximated at intervals with 3-0 Vicryl suture and the skin was closed with a running 4-0 Monocryl suture. The upper midline and right lower quadrant upper scopic sutures were also closed with 4-0 Monocryl and Dermabond dressings were placed. These wounds were then excluded from the field and attention turned to maturation of the colostomy. With all was secured at 4 quadrants to the anterior rectus sheath with silk sutures. The staple line was then resected and a everted jackson colostomy created by securing full-thickness bites of the edge of the colon to Lembert sutures several centimeters proximal and securing this to the dermis at 4 quadrants. The full-thickness of the bowel wall was secured to the dermis at intervals between these sutures. The lumen was palpated and confirmed to be widely patent. A colostomy appliance was placed and the patient was extubated and taken to recovery in good condition. Estimated blood loss was minimal. There were no complications. Specimen is sigmoid colon, terminal ileum small bowel mass, and pus for Gram stain and culture.
[2018-11-08] MEDS: HYDROcodone/Acetaminophen 5/325 mg Tablet PO PRN ×3 (11:41→21:34)
--- NOTE | 2018-11-08 12:02 | PDOC.GSPN ---
Surgery Progress Note: Subj - Subjective Narrative: Pain is a little bit better today. Urine is clearing up. No flatus yet but no nausea. Incisions look good. Colostomy is healthy but no output yet. Surgery Progress Note: Obj - Vital signs Vital signs: Vital Signs - Most Recent Temp Pulse Resp BP Pulse Ox 98.1 F 89 20 108/69 97 11/08/18 11:49 11/08/18 11:49 11/08/18 11:49 11/08/18 11:49 11/08/18 11:49 Surgery Progress Note: Results - Labs Result Diagrams: 11/07/18 06:04 11/07/18 06:04
[2018-11-08] MEDS: Acetaminophen 325 MG TAB PO PRN (14:35)
[2018-11-08] MEDS: Enoxaparin Sodium 40 MG/0.4 ML SYRINGE SC SCH (20:28)
[2018-11-08] MEDS: Zolpidem Tartrate 5 MG TAB PO PRN (20:37)
[2018-11-09] MEDS: HYDROcodone/Acetaminophen 5/325 mg Tablet PO PRN ×4 (03:04→20:01)
[2018-11-09] MEDS: D5 1/2 NS w/20 mEq KCL 1,000 ML IV SCH ×3 (03:05→12:20)
[2018-11-09] MEDS: MEROPENEM 1 GM/50 ML 1 GM in Premix Bag 1 BAG IVPB SCH ×3 (03:06→19:54)
[2018-11-09] MEDS: Ketorolac Tromethamine 30 MG/ML VIAL IVP PRN ×4 (04:35→21:52)
[2018-11-09] MEDS: Famotidine/PF 20 mg/2ml Vial SLOW IVP SCH ×2 (08:47→19:57)
[2018-11-09] MEDS: Morphine 4 MG/ML VIAL SLOW IVP PRN ×2 (08:48→12:12)
[2018-11-09] MEDS: Ondansetron PF 4 MG/2 ML Vial IVP PRN ×3 (08:48→20:49)
[2018-11-09] MEDS: Famotidine 20 MG TAB PO SCH ×2 (08:48→19:55)
[2018-11-09] MEDS: Fluticasone Propionate Nasal Spray 16 gm Bottle NASAL SCH (08:50)
--- NOTE | 2018-11-09 11:36 | RAD ---
KUB AND UPRIGHT: Date: 11/09/18 HISTORY: Patient complaining of gas and abdominal pain. FINDINGS: The bowel gas pattern is nonobstructive. There is a left-sided colostomy present. Free air is demonst rated. The patient has undergone recent surgery after discussing with patient's nurse, Dorothy. No si gnificant bony findings. IMPRESSION: Free air under both hemidiaphragms consistent with recent surgery, with left-sided colostomy. POS: MARVIN
[2018-11-09] MEDS: Simethicone Chewable 80 MG TAB PO PRN ×2 (12:12→19:21)
[2018-11-09] MEDS ORDERED: Polyethylene Glycol 3350 17 GM Packet PO SCH (12:15)
--- NOTE | 2018-11-09 12:17 | PDOC.GSPN ---
Surgery Progress Note: Subj - Subjective Narrative: Patient is having a lot of gas pain was last night and this morning but is passing gas out through her colostomy as well. She denies any nausea. The pain is crampy and across the upper abdomen. Her vitals are good. No stool yet through the ostomy which looks healthy. Incisions also looked good. She is not distended. Assessment/plan: Status post colectomy and colostomy for colovaginal fistula and incidental small bowel mass resection for an antimesenteric mass.. Bowel function is returning that she is having a lot of gas pain. I'm going to start her on a stool softener and laxative. When she is feeling better she can advance to a full liquid diet. Surgery Progress Note: Obj - Vital signs Vital signs: Vital Signs - Most Recent Temp Pulse Resp BP Pulse Ox 98.0 F 65 16 112/74 98 11/09/18 07:10 11/09/18 07:10 11/09/18 07:10 11/09/18 07:10 11/09/18 08:47 Surgery Progress Note: Results - Labs Result Diagrams: 11/07/18 06:04 11/07/18 06:04
--- NOTE | 2018-11-09 18:33 | PRG ---
DATE OF SERVICE: 11/09/2018 SUBJECTIVE: Ms. Meza had segmental resection and a colostomy placed. The path report is pending. She appears well. Denies any headaches, visual symptoms, sore throat, odynophagia, or dysphagia. No chest pain. Mild abdominal tenderness. No joint symptoms. OBJECTIVE: VITAL SIGNS: Normal. LUNGS: Clear. HEART: S1 and S2, regular rate. ABDOMEN: Not remarkable. Does not have any drains. LABORATORY DATA: White cell count 4.9, hemoglobin 13, and platelets 222. Chemistry with a creatinine of 0.7. Liver profile normal. Urinalysis with 21 to 50 wbc's. Microbiology with negative blood cultures. The abdomen abscess cultures are still pending. Preliminary results, some growth is noted, but we do not have yet any identification or susceptibility results. ASSESSMENT AND DISCUSSION: Diverticulitis with perforation and has fistula development, status post segmental resection, multiple organisms, some of them with higher level of resistance. We will recommend continuation of meropenem for at least another 2 weeks. PICC line placement. Job ID: [id number]
[2018-11-09] MEDS: Enoxaparin Sodium 40 MG/0.4 ML SYRINGE SC SCH (19:55)
[2018-11-09] MEDS: Docusate 100 MG CAP PO SCH (19:55)
[2018-11-09] MEDS: Zolpidem Tartrate 5 MG TAB PO PRN (22:29)
[2018-11-10] MEDS: HYDROcodone/Acetaminophen 5/325 mg Tablet PO PRN ×3 (02:00→20:26)
[2018-11-10] MEDS: D5 1/2 NS w/20 mEq KCL 1,000 ML IV SCH ×2 (02:04→09:15)
[2018-11-10] MEDS: MEROPENEM 1 GM/50 ML 1 GM in Premix Bag 1 BAG IVPB SCH ×3 (03:06→20:26)
[2018-11-10] MEDS: Simethicone Chewable 80 MG TAB PO PRN ×2 (03:09→20:25)
--- NOTE | 2018-11-10 08:51 | PRG ---
DATE OF SERVICE: 11/10/2018 SUBJECTIVE: The patient says she is feeling better, less pain. She had a little bit of nausea, but it is better. She is tolerating full liquids well. OBJECTIVE: VITAL SIGNS: Temperature 98.2, pulse 72, blood pressure 102/67. GENERAL: She is awake, alert, looks good. ABDOMEN: Soft, nondistended. The ostomy is healthy and there was plenty of flatus in the bag. ASSESSMENT: Status post Latosha's procedure for colovaginal fistula, doing well. PLAN: Advance diet. Decrease IV fluids. Job ID: [id number]
[2018-11-10] MEDS: Polyethylene Glycol 3350 17 GM Packet PO SCH (09:13)
[2018-11-10] MEDS: Famotidine 20 MG TAB PO SCH ×2 (09:14→20:26)
[2018-11-10] MEDS: Docusate 100 MG CAP PO SCH ×2 (09:15→20:26)
[2018-11-10] MEDS: Fluticasone Propionate Nasal Spray 16 gm Bottle NASAL SCH (09:18)
[2018-11-10] MEDS: Famotidine/PF 20 mg/2ml Vial SLOW IVP SCH ×2 (09:18→20:26)
[2018-11-10] MEDS: Ketorolac Tromethamine 30 MG/ML VIAL IVP PRN ×2 (11:27→18:00)
[2018-11-10] MEDS: Ondansetron PF 4 MG/2 ML Vial IVP PRN (12:42)
[2018-11-10] MEDS: Acetaminophen 325 MG TAB PO PRN (14:15)
[2018-11-10] MEDS: Enoxaparin Sodium 40 MG/0.4 ML SYRINGE SC SCH (20:25)
[2018-11-10] MEDS: Zolpidem Tartrate 5 MG TAB PO PRN (23:07)
[2018-11-11] MEDS: HYDROcodone/Acetaminophen 5/325 mg Tablet PO PRN (02:41)
[2018-11-11] MEDS: MEROPENEM 1 GM/50 ML 1 GM in Premix Bag 1 BAG IVPB SCH ×2 (04:59→11:59)
[2018-11-11] MEDS: D5 1/2 NS w/20 mEq KCL 1,000 ML IV SCH (05:00)
[2018-11-11] MEDS: Ketorolac Tromethamine 30 MG/ML VIAL IVP PRN (07:19)
[2018-11-11 08:10] VITALS: TEMP 97.5
[2018-11-11] MEDS: Polyethylene Glycol 3350 17 GM Packet PO SCH (08:21)
[2018-11-11] MEDS: Famotidine 20 MG TAB PO SCH (08:21)
[2018-11-11] MEDS: Famotidine/PF 20 mg/2ml Vial SLOW IVP SCH (08:24)
[2018-11-11] MEDS: Docusate 100 MG CAP PO SCH (08:24)
[2018-11-11] MEDS: Fluticasone Propionate Nasal Spray 16 gm Bottle NASAL SCH (08:24)
[2018-11-11] MEDS: Acetaminophen 325 MG TAB PO PRN (11:59)
[2018-11-11 12:08] VITALS: BP 114/73
== END 2018-11-11 13:30 | disposition home or self-care (01) | DRG 330 ==
LOC: ERS 00:33 → ERHOLD 03:26 → SURG A 09:49
PROVIDERS: ADMIT Surgery; ATTEND Surgery
PROC: 02HV33Z Insertion of Infusion Device into Superior Vena Cava, Percutaneous Approach (ICD-10-PCS; 2018-11-04)
PROC: B548ZZA Ultrasonography of Superior Vena Cava, Guidance (ICD-10-PCS; 2018-11-04)
PROC: 0T788DZ Dilation of Bilateral Ureters with Intraluminal Device, Via Natural or Artificial Opening Endoscopic (ICD-10-PCS; principal; 2018-11-07)
PROC: 0D1M4Z4 Bypass Descending Colon to Cutaneous, Percutaneous Endoscopic Approach (ICD-10-PCS; 2018-11-07)
PROC: 0DBB4ZZ Excision of Ileum, Percutaneous Endoscopic Approach (ICD-10-PCS; 2018-11-07)
PROC: 0DTN4ZZ Resection of Sigmoid Colon, Percutaneous Endoscopic Approach (ICD-10-PCS; 2018-11-07)
DX: K57.20 Diverticulitis of large intestine with perforation and abscess without bleeding (principal); N82.3 Fistula of vagina to large intestine; R19.09 Other intra-abdominal and pelvic swelling, mass and lump; K66.0 Peritoneal adhesions (postprocedural) (postinfection); E03.9 Hypothyroidism, unspecified
CPT/HCPCS: 36415; 36416; 36569; 74019; 74177; 80048; 80053; 81003; 81015; 83605; 83690; 85025; 87040; 87070; 87076; 87086; 87205; 87480; 87510; 87660; 88305; 88307; 96365; 96367; 96375; 96376; C1751; C1758; J0131; J0670; J1100; J1335; J1644; J1650; J1885; J2001; J2060; J2185; J2250; J2270; J2405; J2704; J3010; J3370; J7050; Q9967; S0028

== ENCOUNTER 2018-12-03 10:48 | Outpatient (CLI) | payer BC, OTHER ==
[~2018-12-03 10:48] MED LIST: Iopamidol 370 76% 100 ML VIAL ONE
--- NOTE | 2018-12-03 14:06 | CT ---
CT OF THE ABDOMEN AND PELVIS WITH CONTRAST: Comparison: 11-03-18 History: Previous colectomy for diverticulitis. Patient had previous perforation and abscess formatio n. Technique: Multiple contiguous axial images were obtained in a CT of the abdomen and pelvis with cont rast. PO contrast was administered. Coronal reformats were performed. FINDINGS: A left colostomy is seen in the left lower quadrant of the abdomen. A short Latosha's pouch is seen. No free air, free fluid, or stranding changes are seen in the abdomen or pelvis. No loculated fluid collection is seen in the abdomen or pelvis. The liver, gallbladder, kidneys, adrenal glands, spleen, and pancreas are unremarkable. Small bowel i s unremarkable. The patient appears to be status post hysterectomy. No abdominal or pelvic lymphadeno thompson are seen. There is a nonspecific radiopacity within the central canal in the lower thoracic spine. The bones ar e otherwise unremarkable. The visualized inferior thorax is unremarkable. IMPRESSION: Post-surgical changes from prior sigmoidectomy with left lower quadrant colostomy. There is no eviden ce of residual intraabdominal abscess. POS: MARVIN
== END 2018-12-03 10:49 | disposition home or self-care (01) ==
LOC: BICCT 10:48
PROVIDERS: ATTEND Internal Medicine Infectious Disease
DX: K57.80 Diverticulitis of intestine, part unspecified, with perforation and abscess without bleeding (principal); Z93.3 Colostomy status; Z90.49 Acquired absence of other specified parts of digestive tract
CPT/HCPCS: 74177; Q9967

== ENCOUNTER 2018-12-10 09:09 | Emergency (ER) | payer BC, OTHER ==
[2018-12-10] MEDS ORDERED: Morphine 4 MG/ML VIAL ONE ×3 (09:34→13:35)
[2018-12-10] MEDS ORDERED: Ondansetron PF 4 MG/2 ML Vial ONE (09:39)
[2018-12-10 09:57] LABS: #Basophils 0.1 thou/uL (0.0-0.2); #Eosinphils 0.3 thou/uL (0.0-0.7); #Lymphocytes 2.6 thou/uL (1.20-3.40); #Monocytes 0.4 thou/uL (0.11-0.59); #Neutrophils 3.6 thou/uL (1.40-6.50); %Basophils 1.5 % (0.0-1.0); %Neutrophils 51.5 % (42.0-75.0); Hemoglobin 14.5 g/dL (12.0-16.0); Mean Corpuscular HGB CONC 33.8 g/dL (32.0-36.0); Mean Corpuscular Hemoglobin 30.5 pg (27.0-31.0); Mean Corpuscular Volume 90.3 fL (78.0-98.0); Mean Platelet Volume 8.2 fL (7.4-10.4); Platelet Count 237 thou/uL (130-400); RBC Distribution Width 11.1 % (11.5-14.5); Red Blood Cell (RBC) Count 4.76 mill/uL (4.20-5.40)
[2018-12-10] MEDS ORDERED: Ketorolac Tromethamine 30 MG/ML VIAL ONE (10:08)
[2018-12-10 10:17] LABS: ALT (SGPT) 41 U/L (8-55); AST (SGOT) 25 U/L (5-34); Albumin 4.8 g/dL (3.5-5.0); Alkaline Phosphatase 133 U/L (40-150); Anion Gap 14 mmol/L (10-20); BUN (Urea Nitrogen) 6 mg/dL (7.0-18.7); Bilirubin, Total 0.9 mg/dL (0.2-1.2); Calc. Creatinine Clearance 0 mL/min (70-130); Calcium 10.1 mg/dL (7.8-10.44); Carbon Dioxide 20 mmol/L (22-29); Chloride 108 mmol/L (98-107); Estimated GFR-MDRD 84; Globulin 3.1 g/dL (2.4-3.5); Glucose 111 mg/dL (70-105); Lipase 30 U/L (8-78); Protein, Total 7.9 g/dL (6.0-8.3); Sodium 138 mmol/L (136-145)
--- NOTE | 2018-12-10 10:40 | CT ---
CT ABDOMEN AND PELVIS NONCONTRAST: HISTORY: Right flank pain. COMPARISON: 12/03/2018. FINDINGS: Each renal collecting system, ureter, and the urinary bladder are decompressed without stone apparent . Lack of contrast limits evaluation for other abnormalities. Tiny noncalcified nodule at the left lat eral lung base is stable. Postoperative changes of the abdomen include left lower quadrant ostomy. A large amount of stool is apparent within the colon and rectum. No free air or free fluid are evide nt. AT the right adnexa, an oval cystic lesion is 1.5 cm with the appearance of a right ovarian foll icle. IMPRESSION: No CT evidence of urinary tract obstruction or calcification. A large amount of stool throughout the colon and rectum suggestive of constipation. Exam postoperative anatomy of the bowel is not clear. There is a left lower quadrant ostomy. POS: MARVIN
[2018-12-10 11:43] LABS: Bilirubin Negative (Negative); Blood, Urine Negative (Negative); Clarity CLEAR (Clear); Glucose, Urine (Dipstick) Negative (Negative); Leukocyte Negative (Negative); Nitrite Negative (Negative); Protein, Urine (Dipstick) Negative (Neg-Trace); Specific Gravity, Urine 1.019 (1.002-1.036); Urobilinogen 0.2 mg/dL (0.2-1.0); pH, Urine 5.5 (5.0-9.0)
== END 2018-12-10 13:43 | disposition home or self-care (01) ==
LOC: ERS 09:09
DX: K59.00 Constipation, unspecified (principal); R10.31 Right lower quadrant pain
CPT/HCPCS: 74176; 80053; 81003; 83690; 85025; 96372; 96374; 96375; 96376; J1885; J2270; J2405

== ENCOUNTER 2019-02-03 10:15 | Inpatient (IN) | payer BC, OTHER ==
[2019-02-20 11:26] VITALS: BMI 21.9
[2019-02-21] MEDS ORDERED: Bupivacaine HCl 0.5%/Epinephrine 1:200,000/PF 30 ml Vial ONE (10:13)
[2019-02-21] MEDS ORDERED: Lidocaine 1% PF 5 ML VIAL ONE (10:26)
[2019-02-21] MEDS ORDERED: PROPOFOL 200 MG/20 ML VIAL ONE (10:26)
[2019-02-21] MEDS ORDERED: Glycopyrrolate 0.2 MG/ML 5 ML SYRINGE ONE (10:26)
[2019-02-21] MEDS ORDERED: Rocuronium Bromide 10 MG/ML (10ML VIAL) ONE (10:26)
[2019-02-21] MEDS ORDERED: Vecuronium 10 MG VIAL ONE (10:26)
[2019-02-21] MEDS ORDERED: Ondansetron PF 4 MG/2 ML Vial ONE (10:26)
[2019-02-21] MEDS ORDERED: Dexamethasone 20 MG/5 ML VIAL ONE (10:26)
[2019-02-21] MEDS ORDERED: PHENYLEPHRINE-NS 100 MCG/ML 10 ML SYRINGE ONE (10:26)
[2019-02-21] MEDS ORDERED: Ketorolac Tromethamine 30 MG/ML VIAL ONE (11:13)
[2019-02-21 11:18] LABS: #Eosinphils 0.1 thou/uL (0.0-0.7); #Lymphocytes 1.8 thou/uL (1.20-3.40); #Monocytes 0.5 thou/uL (0.11-0.59); #Neutrophils 4.8 thou/uL (1.40-6.50); %Basophils 0.6 % (0.0-1.0); %Eosinophils 0.9 % (0.0-10.0); %Lymphocytes 24.4 % (21.0-51.0); %Monocytes 7.2 % (0.0-10.0); %Neutrophils 66.8 % (42.0-75.0); Hemoglobin 15.4 g/dL (12.0-16.0); Mean Corpuscular HGB CONC 34.9 g/dL (32.0-36.0); Mean Corpuscular Hemoglobin 32.1 pg (27.0-31.0); Mean Platelet Volume 7.9 fL (7.4-10.4); Platelet Count 245 thou/uL (130-400); RBC Distribution Width 11.1 % (11.5-14.5); Red Blood Cell (RBC) Count 4.81 mill/uL (4.20-5.40); White Blood Cell (WBC) Count 7.2 thou/uL (4.8-10.8)
[2019-02-21] MEDS ORDERED: Fentanyl 100 MCG/2 ML VIAL ONE ×4 (11:18→17:58)
[2019-02-21] MEDS ORDERED: Midazolam HCl 2 mg/2 ml Vial ONE (11:18)
[2019-02-21 11:24] LABS: Hemoglobin A1c 4.8 % (4.0-6.0)
[2019-02-21 11:35] LABS: Anion Gap 16 mmol/L (10-20); BUN (Urea Nitrogen) 14 mg/dL (7.0-18.7); Calc. Creatinine Clearance 81 mL/min (70-130); Calcium 10.7 mg/dL (7.8-10.44); Carbon Dioxide 20 mmol/L (22-29); Chloride 105 mmol/L (98-107); Estimated GFR-MDRD 73; Glucose 72 mg/dL (70-105); Potassium 4.4 mmol/L (3.5-5.1); Sodium 137 mmol/L (136-145)
[2019-02-21] MEDS ORDERED: Bupivacaine/Epinephrine 0.25% 30 ML VIAL ONE (12:21)
[2019-02-21] MEDS ORDERED: Bupivacaine 0.25% HCL 30 ML VIAL ONE (12:21)
[2019-02-21] MEDS ORDERED: cefOXitin 2 GM VIAL ONE (14:07)
[2019-02-21] MEDS ORDERED: hydrALAZINE 20 MG/ML VIAL SLOW IVP PRN (16:41)
[2019-02-21] MEDS ORDERED: Promethazine HCl 25 MG/ML VIAL IM PRN ×3 (16:41→17:14)
[2019-02-21] MEDS ORDERED: Ketorolac Tromethamine 30 MG/ML VIAL IVP PRN (16:50)
[2019-02-21] MEDS ORDERED: Ondansetron HCl/PF 4 MG/2 ML Vial IVP PRN (16:50)
[2019-02-21] MEDS ORDERED: PACU-Morphine 4MG/ML VIAL SLOW IVP PRN (16:50)
[2019-02-21] MEDS ORDERED: HYDROmorphone 2 MG/ML VIAL SLOW IVP PRN (16:50)
[2019-02-21] MEDS ORDERED: Morphine Sulfate 2 MG/ML SYRINGE SLOW IVP PRN (16:50)
[2019-02-21] MEDS ORDERED: Promethazine HCl 25 MG/ML VIAL SLOW IVP PRN (16:50)
[2019-02-21] MEDS ORDERED: Meperidine HCl/PF 25 MG/ML VIAL SLOW IVP PRN (16:50)
[2019-02-21] MEDS ORDERED: Promethazine HCl 25 MG/ML VIAL ONE (16:54)
[2019-02-21] MEDS ORDERED: HYDROmorphone 10 mg/100 ml CADD IVPB PRN (17:14)
[2019-02-21] MEDS ORDERED: Naloxone HCl 0.4 mg/ml Vial IV PRN (17:14)
[2019-02-21] MEDS ORDERED: diphenhydrAMINE 50 MG/ML VIAL IM PRN (17:14)
[2019-02-21] MEDS ORDERED: Ondansetron PF 4 MG/2 ML Vial IVP PRN (17:14)
[2019-02-21] MEDS ORDERED: diphenhydrAMINE 25 MG CAP PO PRN (17:14)
[2019-02-21] MEDS ORDERED: Communication Order-Pharmacy FS SCH (17:15)
[2019-02-21] MEDS ORDERED: HYDROmorphone 2 MG/ML VIAL ONE (17:22)
--- NOTE | 2019-02-21 17:42 | PDOC.OP ---
Operative Note - Operative Note Operative Note: PROCEDURE: Laparoscopic hand-assisted colostomy reversal SURGEON: Nelia Smith M.D. DATE: 02/21/2019 PREOPERATIVE DIAGNOSIS: Unwanted colostomy status post Cardenas's procedure POSTOPERATIVE DIAGNOSIS: Unwanted colostomy status post Cardenas's procedure HISTORY: Patient underwent Cardenas's procedure for a colovaginal fistula. She has recovered well and has had a normal screening colonoscopy. She presents for colostomy takedown. PROCEDURE IN DETAIL: After informed consent was obtained and appropriate bowel preparation and preoperative antibiotics administered, the patient was taken to the operating which was placed in supine position and general endotracheal anesthesia was administered. The colostomy was closed with a running locking silk suture and she was prepped and draped in standard sterile fashion in lithotomy position. After prepping the abdomen the colostomy site was excluded from the field with Tegaderm. A circumumbilical incision was reopened and dissection carried down to the fascia which was incised in the midline. There are no significant adhesions. The GelPort was placed and The gas insufflated to an intra-abdominal pressure 15 which the patient tolerated well. Dissecting trochars were placed in the right lower quadrants, epigastrium, and left lateral abdomen. The small bowel and cecum were drawn up out of the pelvis. There was a small adhesion between the left fallopian tube and the rectal stump which was taken down using LigaSure. The rectal stump appeared healthy. The white line of Toldt was incised lateral to the descending colon and followed up to the splenic flexure which was taken down laparoscopically completely mobilizing the left colon. A laparoscopic stapler was then placed across the descending colon at the level of the colostomy and the colon was divided. The end of the descending colon was externalized and towels were placed around the colon. The suture line was excised and the bowel accepted up to a 28 mm dilator. A 28 mm EEA stapler was obtained. Purse string suture was placed around the end of the descending colon and the anvil placed into the bowel and secured with the pursestring suture. Gloves and isthmus were then changed and the bowel returned to the abdominal cavity. The gas was reinsufflated and the colon was found to reach easily down to the rectal stump. Bowel sizers were then passed up the rectal stump, but could not be passed to the very end of the rectal stump. About 4 cm of the proximal rectum was unable to except any of the sizers. It was unclear whether this was because of the size difference or because of angulation or rectal valve, but the sizers could not be passed into the pouch so the decision was made to resect the proximal 4 cm rectal stump. The location of the ureters was carefully identified and was well lateral to the operative site. The mesial rectum was divided using LigaSure down to the end of the rectum that was able to except the sizers. Another load of the bowel stapler was placed across the rectum at this level and fired. The staple line was examined and hemostasis was excellent. The rectal sizers were easily able to be passed up to this level. The EEA stapler was then advanced to the end of the rectal pouch and the spike advanced anterior to the staple line and secured to the anvil. Care was taken to maintain correct orientation of the colon. The EEA stapler was then tightened and fired and then removed. There were 2 full- thickness donuts confirmed on the back table. The bowel was then clamped and saline instilled into the pelvis and the anastomosis distended with gas using a proctoscope. There was no leak from the anastomosis which appeared entirely healthy. The bowel itself had good laxity, but the mesentery was creating some tension so some of the distal vessels had to be divided, taking care to leave the vascular arcade intact. Following this there was no tension on the anastomosis. The abdominal cavity was irrigated and hemostasis verified. The small bowel was returned to its normal position and the omentum drawn down over the small intestine. It was noted that the patient had an omental adhesion to the right colon creating a attention for internal hernia and this adhesion was divided with LigaSure. The 12 port in the right lower quadrant was then removed and the fascial defects closed under direct laparoscopic vision with a 0 Vicryl suture with excellent result. The left lateral and epigastric trochars removed and hemostasis verified. The GelPort wound protector was then removed and Seprafilm placed beneath the umbilical incision. The fascia was closed with running PDS suture and the incisions were all irrigated and the skin closed with running 4-0 subcuticular Vicryl suture. Dermabond dressings were placed. Attention was then turned to removal of the colostomy. An elliptical incision was made around the colostomy and the colon dissected free of the subcutaneous tissues and the rectus abdominis muscle and sheaths. The posterior sheath was closed with a running PDS suture and the wound irrigated. The anterior sheath was then closed with another running PDS suture. Subcutaneous tissues were loosely approximated centrally and the skin closed at intervals. Iodoform packing was placed into the subcutaneous tissues between the sutures and a gauze and Tegaderm dressing was placed. The patient was extubated and taken to recovery in good condition. Estimated blood loss was minimal. There were no complications. There were no specimens. The colonic and rectal doughnuts created by EEA stapler, the colon contained within the colostomy, and the proximal rectum which was resected were all examined on the back table and were grossly normal and were discarded.
[2019-02-21] MEDS: Acetaminophen 1,000 MG in Premix Bag 1 BAG IVPB SCH ×2 (19:01→23:02)
[2019-02-21] MEDS: D5 1/2 NS w/20 mEq KCL 1,000 ML IV SCH (19:02)
[2019-02-21] MEDS: Ketorolac Tromethamine 30 MG/ML VIAL IVP PRN (21:11)
[2019-02-21] MEDS: Famotidine/PF 20 mg/2ml Vial SLOW IVP SCH (21:54)
[2019-02-21] MEDS: cefOXitin Sodium/Dextrose,Iso 1 GM in Premix Bag 50 BAG IVPB SCH (21:55)
[2019-02-21] MEDS: Famotidine 20 MG TAB PO SCH (22:17)
[2019-02-21] MEDS: Zolpidem Tartrate 5 MG TAB PO PRN (23:08)
[2019-02-22] MEDS: Ketorolac Tromethamine 30 MG/ML VIAL IVP PRN ×3 (03:06→15:02)
[2019-02-22] MEDS: diphenhydrAMINE 50 MG/ML VIAL IVP PRN ×2 (03:08→20:42)
[2019-02-22] MEDS: D5 1/2 NS w/20 mEq KCL 1,000 ML IV SCH ×3 (04:24→08:55)
[2019-02-22 04:39] LABS: #Lymphocytes 1.1 thou/uL (1.20-3.40); #Monocytes 0.7 thou/uL (0.11-0.59); #Neutrophils 8.5 thou/uL (1.40-6.50); %Basophils 0.2 % (0.0-1.0); %Eosinophils 0.1 % (0.0-10.0); %Lymphocytes 10.2 % (21.0-51.0); %Monocytes 7.1 % (0.0-10.0); %Neutrophils 82.3 % (42.0-75.0); Hemoglobin 12.4 g/dL (12.0-16.0); Mean Corpuscular HGB CONC 34.6 g/dL (32.0-36.0); Mean Corpuscular Hemoglobin 32.2 pg (27.0-31.0); Mean Platelet Volume 7.8 fL (7.4-10.4); Platelet Count 222 thou/uL (130-400); RBC Distribution Width 10.8 % (11.5-14.5); Red Blood Cell (RBC) Count 3.84 mill/uL (4.20-5.40); White Blood Cell (WBC) Count 10.4 thou/uL (4.8-10.8)
[2019-02-22 05:01] LABS: Anion Gap 7 mmol/L (10-20); BUN (Urea Nitrogen) 8 mg/dL (7.0-18.7); Calc. Creatinine Clearance 91 mL/min (70-130); Calcium 8.7 mg/dL (7.8-10.44); Carbon Dioxide 24 mmol/L (22-29); Chloride 108 mmol/L (98-107); Estimated GFR-MDRD 83; Glucose 161 mg/dL (70-105); Potassium 4.2 mmol/L (3.5-5.1); Sodium 135 mmol/L (136-145)
[2019-02-22] MEDS: Acetaminophen 1,000 MG in Premix Bag 1 BAG IVPB SCH ×2 (05:27→11:18)
[2019-02-22] MEDS: cefOXitin Sodium/Dextrose,Iso 1 GM in Premix Bag 50 BAG IVPB SCH (05:35)
--- NOTE | 2019-02-22 08:28 | PDOC.GSPN ---
Surgery Progress Note: Subj - Subjective Narrative: No nausea or bloating. has not ambulated yet Surgery Progress Note: Obj - Vital signs Vital signs: Vital Signs - Most Recent Temp Pulse Resp BP Pulse Ox 97.5 F L 62 16 102/62 98 02/22/19 07:16 02/22/19 07:16 02/22/19 07:16 02/22/19 07:16 02/22/19 07:16 - Physical Exam General: no distress Cardiovascular: regular rate and rhythm Respiratory: clear to auscultation Abdomen: soft, nondistended, appropriately tender Wound: healing well Surgery Progress Note: Results - Labs Result Diagrams: 02/22/19 04:29 02/22/19 04:29 Lab results: Laboratory Results - last 24 hr 02/22/19 02/22/19 04:29 04:29 WBC 10.4 RBC 3.84 L Hgb 12.4 Hct 35.7 L MCV 93.0 MCH 32.2 H MCHC 34.6 RDW 10.8 L Plt Count 222 MPV 7.8 Neutrophils % 82.3 H Lymphocytes % 10.2 L Monocytes % 7.1 Eosinophils % 0.1 Basophils % 0.2 Neutrophils # 8.5 H Lymphocytes # 1.1 L Monocytes # 0.7 H Eosinophils # 0.0 Basophils # 0.0 Sodium 135 L Potassium 4.2 Chloride 108 H Carbon Dioxide 24 Anion Gap 7 L BUN 8 Creatinine 0.77 Estimated GFR (MDRD) 83 Glucose 161 H Calcium 8.7 Surgery Progress Note: A/P - Problem (1) Colostomy dysfunction Current Visit: Yes Code(s): K94.03 - COLOSTOMY MALFUNCTION Status: Acute - Plan Plan: POD 1 colostomy takedown -clear liquids. She was worried that liquids too early would lead to increase complications but I explained that early clears actually improves outcomes and shortens recovery -Needs to ambulate. -DC admissions rn tomorrow -lisseth out before DC
[2019-02-22] MEDS: Famotidine/PF 20 mg/2ml Vial SLOW IVP SCH ×2 (08:45→20:48)
[2019-02-22] MEDS: Famotidine 20 MG TAB PO SCH ×2 (08:57→20:40)
[2019-02-22] MEDS: Fluticasone Propionate Nasal Spray 16 gm Bottle NASAL SCH (10:00)
[2019-02-22] MEDS: Enoxaparin Sodium 40 MG/0.4 ML SYRINGE SC SCH (10:00)
[2019-02-22] MEDS: Ondansetron PF 4 MG/2 ML Vial IVP PRN (10:01)
[2019-02-22] MEDS ORDERED: Docusate 100 MG CAP PO PRN (13:19)
[2019-02-22] MEDS ORDERED: Acetaminophen 325 MG TAB PO PRN (13:19)
[2019-02-22] MEDS: Acetaminophen 325 MG TAB PO PRN ×2 (16:17→20:40)
[2019-02-23] MEDS: Ketorolac Tromethamine 30 MG/ML VIAL IVP PRN ×2 (00:06→06:16)
[2019-02-23] MEDS: D5 1/2 NS w/20 mEq KCL 1,000 ML IV SCH ×2 (00:25→04:42)
[2019-02-23] MEDS: Acetaminophen 325 MG TAB PO PRN (04:42)
[2019-02-23] MEDS: Ondansetron PF 4 MG/2 ML Vial IVP PRN (08:22)
[2019-02-23] MEDS: Enoxaparin Sodium 40 MG/0.4 ML SYRINGE SC SCH (08:22)
[2019-02-23] MEDS: Famotidine/PF 20 mg/2ml Vial SLOW IVP SCH ×2 (08:22→20:22)
[2019-02-23] MEDS: Famotidine 20 MG TAB PO SCH ×2 (08:26→20:24)
[2019-02-23] MEDS ORDERED: Acetaminophen 1,000 MG in Premix Bag 1 BAG IVPB PRN (08:32)
[2019-02-23] MEDS ORDERED: traMADol HCl 50 MG TAB PO PRN (08:32)
--- NOTE | 2019-02-23 08:32 | PDOC.GSPN ---
Surgery Progress Note: Subj - Subjective Narrative: No nausea, tolerated clears Surgery Progress Note: Obj - Vital signs Vital signs: Vital Signs - Most Recent Temp Pulse Resp BP Pulse Ox 97.6 F 64 20 112/74 98 02/23/19 08:01 02/23/19 08:01 02/23/19 08:01 02/23/19 08:01 02/23/19 08:01 - Physical Exam General: no distress Cardiovascular: regular rate and rhythm Respiratory: clear to auscultation Abdomen: soft, nondistended, positive bowel sounds, appropriately tender Wound: healing well Surgery Progress Note: Results - Labs Result Diagrams: 02/22/19 04:29 02/22/19 04:29 Surgery Progress Note: A/P - Problem (1) Colostomy dysfunction Current Visit: Yes Code(s): K94.03 - COLOSTOMY MALFUNCTION Status: Acute - Plan Plan: POD 2 -full liquids -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
[2019-02-23] MEDS ORDERED: Fentanyl 100 MCG/2 ML VIAL SLOW IVP PRN (08:33)
[2019-02-23] MEDS: Acetaminophen 650 MG/20.3 ML UDCUP PO SCH ×3 (09:10→20:22)
[2019-02-23] MEDS: Fluticasone Propionate Nasal Spray 16 gm Bottle NASAL SCH (09:13)
[2019-02-23] MEDS: traMADol HCl 50 MG TAB PO PRN ×3 (10:08→22:37)
[2019-02-23] MEDS: Fentanyl 100 MCG/2 ML VIAL SLOW IVP PRN ×3 (12:52→20:23)
[2019-02-23] MEDS: Zolpidem Tartrate 5 MG TAB PO PRN (22:37)
[2019-02-24] MEDS: Acetaminophen 650 MG/20.3 ML UDCUP PO SCH (03:25)
[2019-02-24] MEDS: traMADol HCl 50 MG TAB PO PRN ×4 (03:54→22:14)
[2019-02-24] MEDS: Fentanyl 100 MCG/2 ML VIAL SLOW IVP PRN ×3 (06:54→12:33)
[2019-02-24] MEDS: Enoxaparin Sodium 40 MG/0.4 ML SYRINGE SC SCH (09:04)
[2019-02-24] MEDS: Famotidine 20 MG TAB PO SCH ×2 (09:04→19:37)
[2019-02-24] MEDS: Famotidine/PF 20 mg/2ml Vial SLOW IVP SCH ×2 (09:05→19:51)
[2019-02-24] MEDS: Fluticasone Propionate Nasal Spray 16 gm Bottle NASAL SCH (09:05)
[2019-02-24] MEDS ORDERED: Acetaminophen 325 MG TAB PO PRN (09:07)
[2019-02-24] MEDS: Ondansetron PF 4 MG/2 ML Vial IVP PRN (09:12)
[2019-02-24] MEDS: Acetaminophen 325 MG TAB PO PRN ×4 (09:27→22:13)
[2019-02-25] MEDS: traMADol HCl 50 MG TAB PO PRN (03:23)
[2019-02-25] MEDS: Acetaminophen 325 MG TAB PO PRN (03:23)
[2019-02-25 07:51] VITALS: BP 111/76; TEMP 97.9
[2019-02-25] MEDS: Famotidine 20 MG TAB PO SCH (11:00)
[2019-02-25] MEDS: Famotidine/PF 20 mg/2ml Vial SLOW IVP SCH (11:00)
[2019-02-25] MEDS: Enoxaparin Sodium 40 MG/0.4 ML SYRINGE SC SCH (11:00)
[2019-02-25] MEDS: Fluticasone Propionate Nasal Spray 16 gm Bottle NASAL SCH (11:01)
== END 2019-02-25 11:30 | disposition home or self-care (01) | DRG 346 ==
LOC: EDSTATUS 10:15 → SURG A 02-21 10:15
PROVIDERS: ADMIT Surgery; ATTEND Surgery
PROC: 0DSM4ZZ Reposition Descending Colon, Percutaneous Endoscopic Approach (ICD-10-PCS; principal; 2019-02-21)
DX: Z43.3 Encounter for attention to colostomy (principal); Z87.19 Personal history of other diseases of the digestive system; Z87.42 Personal history of other diseases of the female genital tract
CPT/HCPCS: 36415; 36416; 80048; 83036; 85025; J0131; J0670; J0690; J0694; J1100; J1170; J1200; J1650; J1885; J2001; J2250; J2405; J2550; J2704; J3010; S0020; S0028

== ENCOUNTER 2019-09-16 13:28 | Outpatient (CLI) | payer BC ==
--- NOTE | 2019-09-16 14:24 | ULT ---
US Pelvic Transvag W Doppler History: Pelvic pain Comparison: Pelvic ultrasound 2018 Findings: Real-time grayscale color and spectral analysis of the pelvis was performed transabdominal and transvaginal approach. Prior hysterectomy. Left ovary is normal measuring 1.7 x 2.2 x 1.4 cm with adequate vascular flow. Ri ght ovary is not seen. No free fluid within the pelvis. Impression: Normal examination of the left ovary. Prior hysterectomy and nonvisualization of the righ t ovary.
== END 2019-09-16 13:29 | disposition home or self-care (01) ==
LOC: SCSULT 13:28
PROVIDERS: ATTEND Nurse Practitioner Family
DX: R10.31 Right lower quadrant pain (principal); Z90.710 Acquired absence of both cervix and uterus
CPT/HCPCS: 76856